=== PATIENT | female | born 1985 | race Caucasian/White ===

== ENCOUNTER → 2016-07-26 | Outpatient (CLI) | payer BC ==
[~2016-07-26] MED LIST: ACET-749 PO; BCPILLS PO; CEPH500C2 PO; CIPR-255 PO; FLM4 PO; HYDR-5688 PO; IBUP-1050 PO; IBUP-1427 PO; OXYC7.5T65 PO; PHEN-775 PO; PRENTAB26 PO
== END | disposition home or self-care (01) ==
LOC: C.LABSPEC 11:44
PROVIDERS: ATTEND Obstetrics & Gynecology
DX: Z34.83 Encounter for supervision of other normal pregnancy, third trimester (principal)

== ENCOUNTER 2016-08-19 21:57 | Outpatient (CLI) | payer BC ==
[~2016-08-19] VITALS: Ht 172.7 cm; Wt 110.0 kg
[~2016-08-19 21:57] MED LIST changes: -ACET-749 PO; -BCPILLS PO; -CEPH500C2 PO; -CIPR-255 PO; -FLM4 PO; -HYDR-5688 PO; -IBUP-1050 PO; -OXYC7.5T65 PO; -PHEN-775 PO
[2016-08-19 22:49] VITALS: Ht 172.7 cm; Wt 110.0 kg
[2016-08-21] MEDS ORDERED: ACET-749 PO (08:06)
--- NOTE | 2016-08-28 12:40 | EDITING REQUIRED CODING QUERY ---
JARA BULB INSERTION Jara bulb insertion is documented by nursing staff for 08-19-16 but a physician note is not documented within EMR. Please clarify below: ( ) Jara bulb was inserted BRIEF DESCRIPTION: ( ) Jara bulb was not inserted. ( ) Other, please clarify: Thank you for your assistance, Magi Javier - Coding [employer]ials[employer]
[2017-01-18] MEDS ORDERED: CIPR-255 PO (10:47)
[2017-01-18] MEDS ORDERED: FLM4 PO (10:47)
[2017-01-18] MEDS ORDERED: HYDR-5688 PO (12:13)
[2017-01-29] MEDS ORDERED: IBUP-1050 PO (14:48)
[2017-02-21] MEDS ORDERED: OXYC7.5T65 PO (08:46)
[2017-02-21] MEDS ORDERED: PHEN-775 PO (08:46)
[2017-02-21] MEDS ORDERED: CEPH500C2 PO (08:46)
== END 2016-08-19 23:50 | disposition home or self-care (01) ==
LOC: C.OPB 21:57 → C.LD 21:57 → C.OPB 23:50
PROVIDERS: ATTEND Obstetrics & Gynecology
DX: O34.43 Maternal care for other abnormalities of cervix, third trimester (principal); Z3A.39 39 weeks gestation of pregnancy

== ENCOUNTER 2016-08-20 07:34 | Inpatient (IN) | payer BC ==
[~2016-08-20] VITALS: Ht 172.7 cm; Wt 117.3 kg
[~2016-08-20 07:34] MED LIST changes: -IBUP-1427 PO
[2016-08-20] MEDS ORDERED: LACTATED RINGER'S 1000ML 1,000 ML IV PRN (09:32)
[2016-08-20] MEDS ORDERED: LACTATED RINGER'S 1000ML 500 ML IV PRN ×2 (10:03→14:15)
[2016-08-20 10:31] LABS: HEMATOCRIT 40.1 % (37-47); MEAN CELL VOLUME 87.6 fL (80-100); MEAN CORPUSCULAR HEMOGLOBIN 30.6 pg (25-34); MEAN CORPUSCULAR HGB CONC 34.9 g/dl (32-36); MEAN PLATELET VOLUME 11.4 fL (7.4-10.4); PLATELET COUNT 184 K/uL (130-400); RED BLOOD COUNT 4.58 M/uL (4.2-5.4); WHITE BLOOD COUNT 11.96 K/uL (4.8-10.8)
[2016-08-20] MEDS: LACTATED RINGER'S 1000ML 1,000 ML IV SCH ×2 (10:49→13:30)
[2016-08-20] MEDS: OXYTOCIN 30 UNITS/500ML NSS IV PRN ×2 (10:50→14:51)
[2016-08-20] MEDS ORDERED: BUPIVACAINE 0.25% 30 ML VIAL ONE (12:21)
[2016-08-20] MEDS ORDERED: FENTANYL CITRATE INJ 50 MCG/1 ML 2 ML VIAL ONE (12:22)
[2016-08-20] MEDS ORDERED: FENTANYL 2MCG/ML ROPIV 1.25MG/ML 100ML BAG EPI ONE (12:22)
[2016-08-20] MEDS ORDERED: EpHEDrine SULFATE INJ 50 MG/ML AMP ONE (12:22)
[2016-08-20] MEDS ORDERED: NALOXONE HCL INJ 0.4 MG/1 ML VIAL/CARP IV PRN (14:15)
[2016-08-20] MEDS ORDERED: NALBUPHINE HCL INJ 10 MG/ML AMP IV PRN (14:15)
[2016-08-20] MEDS ORDERED: EpHEDrine SULFATE INJ 50 MG/ML AMP IV PRN (14:15)
[2016-08-20] MEDS ORDERED: FENTANYL 2MCG/ML ROPIV 1.25MG/ML 100ML BAG EPI PRN (14:15)
[2016-08-20] MEDS ORDERED: DiphenhydrAMINE HCL 50 MG/ML VIAL IV PRN (14:15)
[2016-08-20] MEDS ORDERED: ONDANSETRON INJ 2 MG/ML 2 ML VIAL IV PRN (14:15)
[2016-08-20 15:21] VITALS: Ht 172.7 cm; Wt 117.3 kg
[2016-08-20] MEDS ORDERED: SUPERCREAM 0.870 % 15GM JAR EXT PRN (16:45)
[2016-08-20] MEDS ORDERED: BENZOCAINE 20% AER SPR 82.5 GM CAN EXT PRN (16:45)
[2016-08-20] MEDS ORDERED: LANOLIN OINT EXT PRN ×2 (16:45)
[2016-08-20] MEDS ORDERED: ACETAMINOPHEN 325 MG TAB PO PRN (16:45)
[2016-08-20] MEDS ORDERED: OXYTOCIN 30 UNITS/500ML NSS IV PRN (16:45)
--- NOTE | 2016-08-20 16:52 | Medical Student: [facility] ---
Medical Student Delivery Note PRE-DELIVERY DIAGNOSIS: -30 year old , 39 weeks 4 days GA POST-DELIVERY DIAGNOSIS: same PROCEDURE: Spontaneous vaginal delivery ESTIMATED BLOOD LOSS: 400 mL FINDING: viable female, Apgars 8/9, weight pending DESCRIPTION OF DELIVERY: Patient was administered epidural and progressed to complete labor. She began to push and after two pushes spontaneously vaginally delivered a viable female . The was delivered in the left occiput anterior position. After the head was delivered a tight nuchal cord x2 was noted. The cord was clamped and cut and unwound from the 's neck. Next, the anterior shoulder was delivered followed by the posterior shoulder. Then the body was delivered. The baby was dried and subsequently placed on mother's abdomen. A spontaneous cry was heard. The placenta was then delivered spontaneously with uterine massage and low pressure to prevent inversion. It was intact with a central cord attachment and 2 umbilical arteries and 1 umbilical vein was observed. Uterine massage was continued for several minutes. Upon palpation the uterus was firm. The vagina was inspected for any retained clots or debris. Next, the perineum, vagina and cervix were inspected for any tears. No lacerations were observed. Mother and baby tolerated the procedure well and hemostasis was achieved. Lastly , sponges, instruments and needles were counted and correct at the end of the delivery.
--- NOTE | 2016-08-20 17:01 | DELIVERY SUMMARY ---
DATE OF OPERATION: 08/20/2016 The patient is a 30-year-old 4, para 3-0-0-3 white female EDC of 08/23/2016, who presents at 39 weeks for induction of labor because of higher macrosomic infant. Her last child weighed 10 pounds 3 ounces at 40 and 4/7 weeks. She presented following cervical Mahajan dilation at 4 cm dilated. Cervix was very posterior and Pitocin augmentation was begun. She received epidural analgesia and at 8 cm membranes were ruptured for clear fluid. She went quickly to full dilation and pushed effectively over intact perineum for a viable female infant. There was a double nuchal cord, which was clamped and cut prior to delivery of the rest of the , which delivered easily. The infant was then placed on the mother's abdomen for further attention and stimulation. There was vigorous cry, and the infant was moving all 4 limbs. The placenta was expressed intact with a 3-vessel cord. Estimated blood loss was 400 mL. bleeding was controlled with dilute Pitocin. I attest to the content of the Intraoperative Record and any orders documented therein. Any exceptio ns are noted below.
--- NOTE | 2016-08-20 18:08 | Anesthesia Procedure Note ---
Anesthesia Epidural Removal Nt Date & Time Aug 20, 2016 at 18:07 Vital Signs Pain Intensity: 0.0 Notes Mental Status: alert / awake / arousable, participated in evaluation Nausea / Vomiting: adequately controlled Pain: adequately controlled Airway Patency, RR, SpO2: stable & adequate BP & HR: stable & adequate Hydration State: stable & adequate Neuraxial Anesthesia: was administered, sensory block is resolved Anesthetic Complications: no major complications apparent, pt satisfied with anesthetic care Epidural: removed without complications, with tip intact
[2016-08-20 19:30] VITALS: BP 130/50; PULSE 82; TEMP 36.9; O2SAT 97
[2016-08-20] MEDS: IBUPROFEN 600 MG TAB PO PRN (19:51)
[2016-08-21 00:30] VITALS: BP 151/79; PULSE 75; TEMP 36.7
[2016-08-21] MEDS: IBUPROFEN 600 MG TAB PO PRN ×6 (00:30→23:01)
[2016-08-21 04:40] VITALS: BP 107/63; PULSE 68; TEMP 36.6
[2016-08-21] MEDS: ACETAMINOPHEN/CODEINE 300/30MG TAB PO PRN ×5 (05:31→23:01)
--- NOTE | 2016-08-21 06:19 | Medical Student: [facility] ---
Med Student INSIDE PHONE SALES Progress Nt Date of Service Aug 21, 2016. Subjective conversation w/ patient, physical exam, chart review, lab review Ambulation: limited ambulation (due to back/leg pain) Voiding: no voiding problems Passing Gas: No Diet Tolerance: Regular Diet Lochia: Small Feeding Type: Breast Feeding Pain: mild cramping, no significant vaginal pain. Review of Systems Respiratory: No shortness of breath Cardiac: No chest pain no leg pain/redness, or lightheadedness/dizziness Objective Vital Signs Date Time Temp Pulse Resp B/P Pulse Ox O2 Delivery O2 Flow Rate FiO2 08/21/16 04:40 36.6 68 18 107/63 Room Air 08/21/16 00:30 36.7 75 18 151/79 Room Air 08/20/16 19:30 36.9 82 16 130/50 97 Room Air Physical Exam General Appearance: WELL-APPEARING, NO APPARENT DISTRESS Respiratory/Chest: lungs clear, normal breath sounds Cardiovascular: regular rate, rhythm, no murmur Abdomen: normal bowel sounds, soft Fundus: Firm, Non-Tender, Relation to Umbilicus (1 cm below umbilicus) Extremities: non-tender, no pedal edema Laboratory Results Last 24 Hours Test 08/20/16 10:10 08/21/16 05:40 White Blood Count 11.96 K/uL Red Blood Count 4.58 M/uL Hemoglobin 14.0 g/dL Hematocrit 40.1 % Mean Corpuscular Volume 87.6 fL Mean Corpuscular Hemoglobin 30.6 pg Mean Corpuscular Hemoglobin Concent 34.9 g/dl RDW Standard Deviation 42.5 fL RDW Coefficient of Variation 13.3 % Platelet Count 184 K/uL Mean Platelet Volume 11.4 fL Assessment and Plan Post- Day Number: 1 Continue Routine Care: Doing well clinically. Tolerating PO diet. Pain well controlled w/oral meds. Encourage ambulation as tolerated. Continue routine post care.
[2016-08-21 06:52] LABS: HEMATOCRIT 33.6 % (37-47)
--- NOTE | 2016-08-21 07:15 | Progress Note ---
Subjective Aug 21, 2016. Subjective conversation w/ patient, physical exam Ambulation: limited ambulation (due to back pain) Voiding: no voiding problems Passing Gas: Yes Diet Tolerance: Regular Diet Lochia: Small Feeding Type: Breast Feeding Review of Systems Constitutional: No chills, No fever Respiratory: No cough, No shortness of breath Cardiac: No chest pain, No claudication Objective Vital Signs Date Time Temp Pulse Resp B/P Pulse Ox O2 Delivery O2 Flow Rate FiO2 08/21/16 04:40 36.6 68 18 107/63 Room Air 08/21/16 00:30 36.7 75 18 151/79 Room Air 08/20/16 19:30 36.9 82 16 130/50 97 Room Air Physical Exam General Appearance: WELL-APPEARING, NO APPARENT DISTRESS Respiratory/Chest: lungs clear, no accessory muscle use Cardiovascular: regular rate, rhythm, no murmur Fundus: Firm, Non-Tender, Relation to Umbilicus (1cm below) Extremities: non-tender, no calf tenderness Laboratory Results Last 24 Hours Test 08/20/16 10:10 08/21/16 05:40 White Blood Count 11.96 K/uL Red Blood Count 4.58 M/uL Hemoglobin 14.0 g/dL 11.9 g/dL Hematocrit 40.1 % 33.6 % Mean Corpuscular Volume 87.6 fL Mean Corpuscular Hemoglobin 30.6 pg Mean Corpuscular Hemoglobin Concent 34.9 g/dl RDW Standard Deviation 42.5 fL RDW Coefficient of Variation 13.3 % Platelet Count 184 K/uL Mean Platelet Volume 11.4 fL Assessment and Plan Post- Day#: 1 Continue Routine Care: Resident Physician Supervision Note: I interviewed and examined the patient. Discussed with Dr. Christianson and agree with findings and plan as documented in the note. Any exceptions or clarifications are listed here: [None] Documented By: Astrid Martines s/p Day 1 - vitals reviewed and wnl - Hgb 11.9 this morning - blood: A+, Rubella immune, GBS negative - encourage ambulation, encourage , monitor lochia - patient doing well clinically - CONTINUE ROUTINE POST CARE
[2016-08-21] MEDS: PRENATAL VITAMIN TAB PO SCH (07:51)
[2016-08-21 08:00] VITALS: BP 117/77; PULSE 67; TEMP 36.5
[2016-08-21] MEDS ORDERED: ACET-749 PO (08:06)
--- NOTE | 2016-08-21 08:08 | Discharge Instructions ---
Discharge Instructions Date of Service Aug 21, 2016. Admission Reason for Admission: Induction Discharge Discharge Diagnosis / Problem: recovery from vaginal delivery Discharge Goals Goal(s): Routine recovery after delivery Medications Continue Dispensed Medications: supercream, dermaplast, tucks, lansinoh Activity Recommendations Activity Limitations: per Instructions/Follow-up section . Instructions / Follow-Up Instructions / Follow-Up ACTIVITY RECOMMENDATIONS: * Gradual return to full activity over the next 2-3 weeks. * No lifting - nothing heavier than baby over the next 2-3 weeks. * Do not engage in vigorous exercise, sexual activity or sports until cleared by your physician. * Do not drive or operate any motorized equipment until cleared by your physician. * You may shower/bathe daily. MEDICATIONS: For discomfort or pain, you may use Acetaminophen (Tylenol), Ibuprofen (Advil), or Naproxen (Aleve) following the package directions. For constipation you may use Colace following the package directions. BREAST CARE: If you are not breast feeding: * Wear a supportive bra 24 hours a day for one to two weeks. * Avoid stimulating your breasts and nipples as much as possible during the first few weeks after delivery. * When taking a shower, have the warm water hit your back, not breasts. * When your breasts feel full, apply ice packs. Usually three to four times a day helps ease the discomfort. * Take a mild pain medication (Tylenol / Motrin) when you are uncomfortable. If breast feeding: * Use breast milk to lubricate nipples. Lansinoh cream may be used for sore nipples. You do not need to remove cream prior to breast feeding. If using a different brand of cream, check the label for directions regarding removal of cream prior to nursing. * Wear a supportive bra. * If having problems with breasts or breast feeding, call a health care consultant or your health care provider. EPISIOTOMY CARE: After delivery, if you have an episiotomy (stitches), the following steps will ease discomfort and aid healing. * For the first 24 hours after delivery, place ice packs next to your episiotomy to help reduce swelling. * After the first 24 hour-period, sitz baths, either portable or in the tub, are suggested. A shower with a shower arm sprayed over the episiotomy may be comforting. * Dorcas care should be done after each voiding and bowel movement. Squirt warm water from a plastic bottle over the perineum (region of the body between the anus and urinary opening) and pat dry. * Use Dermoplast to ease discomfort. Shake container. [place] directly over the episiotomy. Place a Tucks on a clean sanitary pad next to your episiotomy. SPECIAL CARE INSTRUCTIONS: When you are discharged from the hospital, it is important for you to follow the instructions listed below: * During the first week at home, you should be able to care for yourself and your baby. In addition, the usual light household activities are encouraged. * Limit your activities to the way you feel. Do not try to clean the house or move furniture. Be sensible. * If you actively engage in sports and have done so up until the time of your delivery, you may resume these activities as soon as you feel able. This may take up to one month or even longer. Use good judgment. * Continue to take your vitamins for at least six weeks after the of your baby. * Your diet need not be limited unless you were on a special diet before your delivery. Breast-feeding mothers need around 2500 calories per day and at least 64-80 ounces of fluid per day (8 to 10 glasses). * You should eat foods from the four major food groups. Crash diets or fad diets are to be avoided. Eating lean meats, fresh fruits and vegetables, low-fat dairy products, high fiber foods and a regular exercise program, will help you get back to your pre- weight without putting your health at risk. * Constipation is sometimes a problem after delivery. Take a mild laxative as needed. If breast feeding, Milk of Magnesia is acceptable to use. You may use a suppository or Fleets enema if no episiotomy. * A daily shower or tub bath is suggested. Be sure to thoroughly and gently dry the perineum. * A bloody vaginal discharge will usually continue until around four weeks post . A small amount of bleeding may continue for as long as six weeks. Vaginal discharge changes from the bright red bleeding after delivery to pink then brownish and finally yellowish-pink before becoming white and disappearing. * Bleeding may increase with activity. Your first period may come in 4-8 weeks. If you are breast feeding, your period may be delayed even longer. * [place] (sex) can begin whenever both you and your partner feel comfortable and do not have any form of genital infection. It is recommended that you wait at least six weeks for internal and external healing to occur. If you have questions, please talk to your health care practitioner. A condom should be used to prevent infection and . * Foreplay, gentle intercourse and lubrication is very important the first several times to prevent pain. A water-based lubricant such as K-Y jelly or Astroglide may be used. * If you have RH negative blood and your baby is RH positive, you will receive RHOGAM by injection prior to discharge. The nurse will give you a card to keep with you that has the date and place that you received RHOGAM after delivery. * During your care, you had a Rubella screen done to check for the presence of rubella antibodies in your blood. If your test was negative, you will receive a Rubella vaccine prior to discharge. This vaccine may cause a fever, soreness at the injection site and flu-like symptoms. If these symptoms persist, notify your health care practitioner. is not advised for one month after a Rubella vaccine. * Verbalizes understanding of car seat law as reviewed with patient nursing. * Car Seat hand-out given and reviewed with patient by nursing. * Shaken baby information reviewed with patient by nursing. Call you doctor if: * Heavy bleeding (saturating several pads an hour) or passing clots the size of your fist. * A fever >101 degrees F (38.3 degrees C) on two occasions four hours apart and /or chills. * Unusual pain in the pelvic or vaginal areas. * "Baby Blues" lasting longer than two weeks. If you have any questions or concerns, call your health care practitioner at . FOLLOW UP VISIT: * Please call the office at to schedule a 6 week examination. It is important you keep this appointment. It is important for you to make arrangements for either yearly or twice yearly check-ups thereafter. Current Hospital Diet Patient's current hospital diet: Regular OB Diet Discharge Diet Recommended Diet: Regular OB Diet Pending Studies Studies pending at discharge: no Medical Emergencies . Who to Call and When: Medical Emergencies: If at any time you feel your situation is an emergency, please call 911 immediately. . Non-Emergent Contact Non-Emergency issues call your: [facility] . . "Provider Documentation" section prepared by Astrid Martines. VTE Core Measure Inpt VTE Proph given/why not?: Treatment not indicated
[2016-08-21 12:40] VITALS: BP 125/81; PULSE 69; TEMP 36.4
[2016-08-21 15:45] VITALS: BP 108/73; PULSE 67; TEMP 36.6; O2SAT 97
[2016-08-21] MEDS ORDERED: BISACODYL 5 MG TABEC PO SCH (20:00)
[2016-08-21] MEDS: DOCUSATE SODIUM 100 MG CAP PO SCH (20:19)
[2016-08-21 23:15] VITALS: BP 110/70; PULSE 71; TEMP 36.5; O2SAT 96
[2016-08-22] MEDS: ACETAMINOPHEN/CODEINE 300/30MG TAB PO PRN ×2 (03:51→08:14)
[2016-08-22] MEDS: IBUPROFEN 600 MG TAB PO PRN (03:51)
--- NOTE | 2016-08-22 06:54 | Medical Student: [facility] ---
Med Student PHYSICIAN CHIEF OF PATHOLOGY Progress Nt Date of Service Aug 22, 2016. Subjective conversation w/ patient, physical exam, chart review, lab review Ambulation: limited ambulation (due to back/leg pain) Voiding: no voiding problems Passing Gas: Yes Diet Tolerance: Regular Diet Lochia: Small Feeding Type: Breast Feeding Pain: mild cramping with breast feeding. moderate-severe back/leg pain Review of Systems Respiratory: No shortness of breath Cardiac: No chest pain Objective Vital Signs Date Time Temp Pulse Resp B/P Pulse Ox O2 Delivery O2 Flow Rate FiO2 08/21/16 23:15 36.5 71 18 110/70 96 Room Air 08/21/16 15:45 36.6 67 16 108/73 97 Room Air 08/21/16 12:40 36.4 69 16 125/81 08/21/16 08:00 36.5 67 20 117/77 Room Air Physical Exam General Appearance: WELL-APPEARING, NO APPARENT DISTRESS, obese Respiratory/Chest: lungs clear, normal breath sounds Cardiovascular: regular rate, rhythm, no murmur Abdomen: non tender, soft Fundus: Firm, Non-Tender (4-5 cm below), Relation to Umbilicus Extremities: non-tender, no pedal edema Assessment and Plan Post- Day Number: 2 Continue Routine Care: Doing well clinically. Difficulty with ambulation related primarily to back pain. Per patient reports this is not out of the ordinary. Can consider discharge home with follow-up for pain with primary care/orthopedic doctor. Otherwise well and without concerns.
[2016-08-22 07:27] VITALS: BP 117/78; PULSE 70; TEMP 36.4; O2SAT 96
--- NOTE | 2016-08-22 08:04 | Progress Note ---
Subjective Aug 22, 2016. Subjective conversation w/ patient, physical exam Ambulation: ambulating normally Voiding: no voiding problems Passing Gas: Yes Diet Tolerance: Regular Diet Lochia: Small Feeding Type: Breast Feeding Pain: back pain Review of Systems Constitutional: No chills, No fever, No sweats Respiratory: No cough, No shortness of breath Cardiac: No chest pain, No claudication Objective Vital Signs Date Time Temp Pulse Resp B/P Pulse Ox O2 Delivery O2 Flow Rate FiO2 08/22/16 07:27 36.4 70 18 117/78 96 Room Air 08/21/16 23:15 36.5 71 18 110/70 96 Room Air 08/21/16 15:45 36.6 67 16 108/73 97 Room Air 08/21/16 12:40 36.4 69 16 125/81 Physical Exam General Appearance: WELL-APPEARING, NO APPARENT DISTRESS Respiratory/Chest: lungs clear, no accessory muscle use Cardiovascular: regular rate, rhythm, no murmur Fundus: Firm, Non-Tender, Relation to Umbilicus (1 cm below) Extremities: non-tender, no calf tenderness Assessment and Plan Post- Day#: 2 Continue Routine Care: s/p Day 2 - vitals reviewed and wnl - Hgb 11.9 yesterday - blood: A+, Rubella immune, GBS negative - encourage ambulation, encourage , monitor lochia - patient doing well clinically - patient counselled on discharge instructions - PATIENT TO BE DISCHARGED TODAY Resident Physician Supervision Note: I was present with Dr. Christianson during the history and exam. I discussed the case with the resident and agree with the findings and plan as documented in the note. Any exceptions or clarifications are listed here: PPD2 doing well, plan discharge home today. Documented By: Samantha Roque
[2016-08-22] MEDS: PRENATAL VITAMIN TAB PO SCH (08:13)
[2016-08-22] MEDS: DOCUSATE SODIUM 100 MG CAP PO SCH (08:14)
[2016-08-22 10:03] VITALS: BP_DIAS 78; PULSE 70; TEMP 36.4
[2017-01-18] MEDS ORDERED: FLM4 PO (10:47)
[2017-01-18] MEDS ORDERED: CIPR-255 PO (10:47)
[2017-01-18] MEDS ORDERED: HYDR-5688 PO (12:13)
[2017-01-29] MEDS ORDERED: IBUP-1050 PO (14:48)
[2017-02-21] MEDS ORDERED: CEPH500C2 PO (08:46)
[2017-02-21] MEDS ORDERED: PHEN-775 PO (08:46)
[2017-02-21] MEDS ORDERED: OXYC7.5T65 PO (08:46)
== END 2016-08-22 10:15 | disposition home or self-care (01) | DRG 775 ==
LOC: C.LD 07:34 → EEVIPCON 07:34 → C.OBG 18:33
PROVIDERS: ADMIT Obstetrics & Gynecology; ATTEND Obstetrics & Gynecology
PROC: 10E0XZZ Delivery of Products of Conception, External Approach (ICD-10-PCS; principal; 2016-08-20)
DX: O69.1XX0 Labor and delivery complicated by cord around neck, with compression, not applicable or unspecified (principal); Z37.0 Single live birth; Z3A.39 39 weeks gestation of pregnancy

== ENCOUNTER → 2016-08-28 | Outpatient (CLI) | payer BC ==
[~2016-08-28] MED LIST changes: +ACET-749 PO; +BCPILLS PO; +CEPH500C2 PO; +CIPR-255 PO; +FLM4 PO; +HYDR-5688 PO; +IBUP-1050 PO; +OXYC7.5T65 PO; +PHEN-775 PO
== END | disposition home or self-care (01) ==
LOC: C.RDSM 08:00
PROVIDERS: ATTEND Family Medicine Sports Medicine
DX: M54.5 Low back pain (principal)

== ENCOUNTER → 2016-09-24 | Outpatient (CLI) | payer BC ==
--- NOTE | 2016-09-24 14:36 | DIAGNOSTIC IMAGING REPORT ---
LUMBAR SPINE MRI HISTORY: MRI lumbar spine LUMBAR DISC DISEASE. STATUS POST DISCECTOMY TECHNIQUE: Multiplanar multisequence MRI of the lumbar spine was performed without the use of contrast. COMPARISON: None. FINDINGS: For the purpose of the report the L5-S1 disc space will be located on axial image 27 of 30. Unremarkable signal characteristics of the vertebral bodies. Moderate disc desiccation L5-S1. Left posterior extradural defect at L5-S1. L1-L2: No significant central canal or neural foraminal narrowing. L2-L3: No significant central canal or neural foraminal narrowing. L3-L4: No significant central canal or neural foraminal narrowing. L4-L5: No significant central canal or neural foraminal narrowing. L5-S1: Left posterior disc herniation L5-S1. Extruded disc fragment extending to the left lateral recess. The extruded fragment measures 9 x 7 mm. Creates focal impact upon the left lateral aspect of thecal sac. IMPRESSION: Left posterior disc herniation L5-S1 with a posterior extruded disc fragment occupying the left lateral recess. 2. Extruded fragment creates focal impact upon the left anterolateral aspect of the thecal sac. 3. Remainder the study is negative. Electronically signed by: Jules Montalvo M.D. 09/24/2016 2:35 PM Dictated Date/Time: 09/24/2016 2:33 PM
== END | disposition home or self-care (01) ==
LOC: C.OPENMRI 13:35
PROVIDERS: ATTEND Family Medicine Sports Medicine
DX: M51.27 Other intervertebral disc displacement, lumbosacral region (principal)

== ENCOUNTER → 2016-10-15 | Outpatient (CLI) | payer BC | END | disposition home or self-care (01) | LOC: C.PAPS 16:48 | PROVIDERS: ATTEND Obstetrics & Gynecology | DX: Z01.419 Encounter for gynecological examination (general) (routine) without abnormal findings (principal) ==

== ENCOUNTER → 2016-12-14 | Outpatient (CLI) | payer BC | END | disposition home or self-care (01) | LOC: C.LABBFT 12:00 | PROVIDERS: ATTEND Nurse Practitioner | DX: Z00.00 Encounter for general adult medical examination without abnormal findings (principal) ==

== ENCOUNTER → 2017-01-08 | Outpatient (CLI) | payer BC ==
[2017-01-08 13:14] LABS: URINE APPEARANCE CLEAR (CLEAR); URINE BILIRUBIN NEG (NEG); URINE COLOR YELLOW; URINE NITRITE NEG (NEG); URINE SPECIFIC GRAVITY 1.013 (1.000-1.030); UROBILINOGEN NEG (NEG)
[2017-01-08 13:20] LABS: MANUAL MICROSCOPIC REQUIRED? NO; REVIEW REQ? NO
== END | disposition home or self-care (01) ==
LOC: C.LABSPEC 12:34
PROVIDERS: ATTEND Internal Medicine
DX: N39.0 Urinary tract infection, site not specified (principal)

== ENCOUNTER → 2017-01-11 | Outpatient (CLI) | payer BC | END | disposition home or self-care (01) | LOC: C.LABBFT 13:20 | PROVIDERS: ATTEND Internal Medicine | DX: N39.0 Urinary tract infection, site not specified (principal) ==

== ENCOUNTER 2017-01-17 18:08 | Inpatient (IN) | payer BC ==
[~2017-01-17] VITALS: Ht 172.7 cm; Wt 109.6 kg
[~2017-01-17 18:08] MED LIST changes: -BCPILLS PO; -CEPH500C2 PO; -CIPR-255 PO; -FLM4 PO; -HYDR-5688 PO; -IBUP-1050 PO; -OXYC7.5T65 PO; -PHEN-775 PO
[2017-01-17] MEDS ORDERED: MoRPHine SULFATE 4 MG/ML 1 ML CARP\\VIAL IV STA (18:25)
[2017-01-17] MEDS ORDERED: ONDANSETRON INJ 2 MG/ML 2 ML VIAL IV STA (18:25)
[2017-01-17] MEDS ORDERED: SODIUM CHLORIDE 0.9% 1000ML 1,000 ML IV STA ×2 (18:25→20:25)
--- NOTE | 2017-01-17 18:29 | EMERGENCY ROOM VISIT NOTE ---
History First contact with patient: 18:13 Chief Complaint: FLANK PAIN Stated Complaint: VOMITTING History of Present Illness The patient is a 31 year old female who presents to the Emergency Room with complaints of left flank pain. The patient states that she was recently treated for urinary tract infection. She had been on Keflex and then Bactrim. She states that she had a clean urinalysis since being treated. She states that today she developed a sudden onset of left flank pain. The pain radiates in the left lower abdomen. It is associated with nausea and vomiting. She rates her discomfort an 8/10. She denies any chest pain or trouble breathing. She denies any dysuria, urgency or frequency. She denies any diarrhea. She denies any history of kidney stone. She denies any falls or injuries. Review of Systems A 10 system review of systems was completed with positives and pertinent negatives listed in the HPI. Past Medical/Surgical History Medical Problems: (1) DELIVER-SINGLE LIVEBORN (2) History of macrosomia in in prior , currently in third trimester (3) Hydronephrosis (4) Left ureteral calculus (5) with 39 completed weeks gestation (6) Unfavorable cervix in term Surgical Problems: (1) [place] Teeth Removal Social History Smoking Status: Never Smoker Marital Status: Current/Historical Medications Scheduled Control Pills ( Control Pills), 1 TAB PO DAILY Physical Exam Vital Signs Date Time Temp Pulse Resp B/P (MAP) Pulse Ox O2 Delivery O2 Flow Rate FiO2 01/17/17 20:46 60 20 106/66 99 Room Air 01/17/17 18:11 36.7 64 16 153/94 95 Room Air Physical Exam VITALS: Vitals are noted on the nurse's note and reviewed by myself. Vital signs stable. The patient is afebrile. GENERAL: This is a 31-year-old female, in no acute distress, nondiaphoretic, well-developed well-nourished. SKIN: The skin was without rashes, erythema, edema, or bruising. There is no tenting of the skin. Capillary reflex less than 2 seconds. HEAD: Normocephalic atraumatic. EARS: The external ears are normal in appearance. EYES: Pupils equal round and reactive to light and accommodation. Conjunctivae without injection, sclerae without icterus. Extraocular movements intact. NOSE: Patent, turbinates without inflammation or discharge. MOUTH: Mucous membranes moist. Tonsils are not enlarged. Pharynx without erythema or exudate. Uvula midline. Airway patent. Tongue does not deviate. NECK: Supple without nuchal rigidity. No lymphadenopathy. No thyromegaly. Cervical spine is nontender. No JVD. HEART: Regular rate and rhythm without murmurs gallops or rubs. LUNGS: Clear to auscultation bilaterally without wheezes, rales or rhonchi. No retractions or accessory muscle use. ABDOMEN: Positive bowel sounds x 4. Soft, mild left lower quadrant tenderness, without masses or organomegaly. MUSCULOSKELETAL: No muscle atrophy, erythema, or edema noted. Full range of motion in all extremities. Normal gait. Strength 5/5 throughout. NEURO: Patient was alert and oriented to person place and time. No focal neurological deficits. Medical Decision & Procedures ER Provider Diagnostic Interpretation: [~ rep ct add3]] ABD/PELVIS WITHOUT FOR STONE CLINICAL HISTORY: 31 years-old Female presenting with left flank pain. TECHNIQUE: Multidetector CT of the abdomen and pelvis was performed without the use of intravenous contrast. IV contrast: None. A dose lowering technique was used consistent with the principles of ALARA (as low as reasonably achievable). COMPARISON: 07/14/2013. CT DOSE (mGy.cm): The estimated cumulative dose is 2107.55 mGy.cm. 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 Lung bases: Pulmonary cyst or bleb/bulla noted posteriorly at the left lower lobe. Lung bases clear. Normal heart size. No pericardial or pleural effusion. The intraventricular blood pool is slightly less dense in the adjacent myocardium which could suggest anemia. Liver: Normal morphology. Normal density. Indeterminate hypodense lesion centrally in the liver (series 2 image 34). This was not apparent on prior contrast enhanced exam from 2013. Biliary: No gross biliary ductal dilatation allowing for noncontrast technique. Normal gallbladder. Pancreas: Normal. Spleen: Subtle region of hypodensity near the splenic hilum at the site of prior suspected infarct. Adrenal glands: Normal. Kidneys and ureters: Nonobstructing 4 mm calculus in the upper pole of the right kidney. Nonobstructing 4 mm calculus also noted in the lower pole of the left kidney as well as a larger 5 mm nonobstructing calculus in the upper pole the left kidney. Mild left hydronephrosis. Perinephric fat stranding near the renal hilum anteriorly. The left ureter is also dilated with mild periureteral fat stranding. An obstructing 6 mm calculus is noted at the left ureterovesical junction. Right ureter normal. Bladder: Incompletely evaluated secondary to underdistention. No evidence of bladder calculus. Pelvic organs: Uterus and ovaries normal. Bowel: Normal. No bowel obstruction. Normal appendix. Peritoneal cavity: No free fluid or intraperitoneal gas. Vasculature: Atherosclerosis of the normal caliber abdominal aorta. Lymph nodes: No enlarged lymph nodes allowing for noncontrast technique. Abdominal wall: Normal. Musculoskeletal: Normal. IMPRESSION: 1. 6 mm obstructing calculus at the left ureterovesical junction with resultant mild left hydroureteronephrosis. Additional bilateral nonobstructing nephrolithiasis. 2. Indeterminate liver lesion not present in 2014. Further evaluation with right upper quadrant ultrasound versus dedicated contrast enhanced CT or MR of the liver is recommended. Laboratory Results 01/17/17 18:50 Red Blood Count 4.77, Mean Corpuscular Volume 85.7, Mean Corpuscular Hemoglobin 29.8, Mean Corpuscular Hemoglobin Concent 34.7, Mean Platelet Volume 9.7, Neutrophils (%) (Auto) 50.7, Lymphocytes (%) (Auto) 39.6, Monocytes (%) (Auto) 4.5, Eosinophils (%) (Auto) 4.7, Basophils (%) (Auto) 0.4, Neutrophils # (Auto) 5.22, Lymphocytes # (Auto) 4.07, Monocytes # (Auto) 0.46, Eosinophils # (Auto) 0.48, Basophils # (Auto) 0.04 01/17/17 18:50 Test 01/17/17 18:50 01/17/17 19:35 White Blood Count 10.28 K/uL (4.8-10.8) Red Blood Count 4.77 M/uL (4.2-5.4) Hemoglobin 14.2 g/dL (12.0-16.0) Hematocrit 40.9 % (37-47) Mean Corpuscular Volume 85.7 fL (80-100) Mean Corpuscular Hemoglobin 29.8 pg (25-34) Mean Corpuscular Hemoglobin Concent 34.7 g/dl (32-36) Platelet Count 244 K/uL (130-400) Mean Platelet Volume 9.7 fL (7.4-10.4) Neutrophils (%) (Auto) 50.7 % Lymphocytes (%) (Auto) 39.6 % Monocytes (%) (Auto) 4.5 % Eosinophils (%) (Auto) 4.7 % Basophils (%) (Auto) 0.4 % Neutrophils # (Auto) 5.22 K/uL (1.4-6.5) Lymphocytes # (Auto) 4.07 K/uL (1.2-3.4) Monocytes # (Auto) 0.46 K/uL (0.11-0.59) Eosinophils # (Auto) 0.48 K/uL (0-0.5) Basophils # (Auto) 0.04 K/uL (0-0.2) RDW Standard Deviation 39.4 fL (36.4-46.3) RDW Coefficient of Variation 12.6 % (11.5-14.5) Immature Granulocyte % (Auto) 0.1 % Immature Granulocyte # (Auto) 0.01 K/uL (0.00-0.02) Anion Gap 8.0 mmol/L (3-11) Est Creatinine Clear Calc Drug Dose 86.5 ml/min Estimated GFR () 68.8 Estimated GFR (Non- 59.3 BUN/Creatinine Ratio 10.6 (10-20) Calcium Level 8.7 mg/dl (8.5-10.1) Total Bilirubin 0.2 mg/dl (0.2-1) Aspartate Amino Transf (AST/SGOT) 21 U/L (15-37) Alanine Aminotransferase (ALT/SGPT) 27 U/L (12-78) Alkaline Phosphatase 84 U/L (45-117) Total Protein 7.4 gm/dl (6.4-8.2) Albumin 3.4 gm/dl (3.4-5.0) Globulin 4.0 gm/dl (2.5-4.0) Albumin/Globulin Ratio 0.9 (0.9-2) Urine Color YELLOW Urine Appearance CLOUDY (CLEAR) Urine pH >= 9.0 (4.5-7.5) Urine Specific [place] 1.027 (1.000-1.030) Urine Protein NEG (NEG) Urine Glucose (UA) NEG (NEG) Urine Ketones NEG (NEG) Urine Occult Blood TRACE (NEG) Urine Nitrite NEG (NEG) Urine Bilirubin NEG (NEG) Urine Urobilinogen NEG (NEG) Urine Leukocyte Esterase SMALL (NEG) Urine WBC (Auto) 10-30 /hpf (0-5) Urine RBC (Auto) 5-10 /hpf (0-4) Urine Hyaline Casts (Auto) 10-30 /lpf (0-5) Urine Epithelial Cells (Auto) >30 /lpf (0-5) Urine Bacteria (Auto) 2+ (NEG) Urine Renal Epithelial Cells /lpf (0-5) Medications Administered Medications (Trade) Dose Ordered Sig/Luisa Route Start Time Stop Time Status Last Admin Dose Admin Sodium Chloride 1,000 ml @ 999 mls/hr Q1H1M STAT IV 01/17/17 18:25 01/17/17 19:25 DC 01/17/17 18:25 999 MLS/HR Morphine Sulfate (MoRPHine SULFATE INJ) 4 mg NOW STAT IV 01/17/17 18:25 01/17/17 18:27 DC 01/17/17 18:25 4 MG Ondansetron HCl (Zofran Inj) 4 mg NOW STAT IV 01/17/17 18:25 01/17/17 18:27 DC 01/17/17 18:25 4 MG Ketorolac Tromethamine (Toradol Inj) 30 mg NOW STAT IV 01/17/17 20:13 01/17/17 20:14 DC 01/17/17 20:13 30 MG Sodium Chloride 1,000 ml @ 999 mls/hr Q1H1M STAT IV 01/17/17 20:25 01/17/17 21:25 DC 01/17/17 21:30 999 MLS/HR Hydromorphone HCl (Dilaudid Inj) 1 mg NOW STAT IV 01/17/17 20:25 01/17/17 20:26 DC 01/17/17 20:25 1 MG Ondansetron HCl (Zofran Inj) 4 mg Q6H PRN IV 01/17/17 20:45 02/16/17 20:44 01/17/17 22:20 4 MG Hydromorphone HCl (Dilaudid Inj) 1 mg Q2H PRN IV 01/17/17 20:45 01/31/17 20:44 01/17/17 22:21 1 MG ED Course The patient was seen and examined. Previous visits were reviewed. The patient does not have fever or leukocytosis. She does not have any significant electrolyte abnormalities. Urinalysis suggests potential contamination from kidney stone versus infection. Urine culture is pending. The patient was hydrated with normal saline solution She was given 4 mg IV morphine and 4 mg IV Zofran with only minimal improvement in her pain She was given 30 mg IV Toradol with moderate improvement in her pain but she still complained of significant discomfort She was then given 1 mg IV Dilaudid. Imaging was obtained as above. The patient has a 6 mm obstructing stone at the left UVJ with hydronephrosis Incidentally, the patient has a lesion that was not present on a 2014 examination. She was advised of this and advised she will need further evaluation and management for it. The patient did not have significant relief with the above treatment. She will require further evaluation and management in the hospital. The case was discussed with the [facility] hospitalist group and they will evaluate the patient. The case was discussed with Dr. Mi who agrees with the assessment and treatment plan. Medical Decision DIFFERENTIAL DIAGNOSIS: Hepatitis, cholecystitis, cholangitis, biliary colic, pancreatitis, pneumonia, subdiaphragmatic abscess, appendicitis, inguinal hernia , nephrolithiasis, inflammatory bowel disease, mesenteric adenitis, peptic ulcer disease, GERD, gastritis, pancreatitis, myocardial infarction, pericarditis, ruptured aortic aneurysm, appendicitis, gastroenteritis, bowel obstruction, splenic infarct, diverticulitis, mesenteric ischemia, metabolic, peritonitis, among others. Medication Reconcilliation Current Medication List: was personally reviewed by sd Blood Pressure Screening Patient's blood pressure: Normal blood pressure Blood pressure disposition: Did not require urgent referral Impression Primary Impression: Kidney stone Additional Impression: Hydronephrosis Departure Information Dispostion Admitted as an inpatient Referrals Gretel Garcia, C.R.N.P. (PCP) Patient Instructions My [facility] Problem Qualifiers
[2017-01-17 18:59] LABS: BASO % 0.4 %; BASO ABS # 0.04 K/uL (0-0.2); COMPLETE YES; EOS % 4.7 %; HEMATOCRIT 40.9 % (37-47); IG% 0.1 %; LYMPH % 39.6 %; LYMPH ABS # 4.07 K/uL (1.2-3.4); MEAN CELL VOLUME 85.7 fL (80-100); MEAN CORPUSCULAR HEMOGLOBIN 29.8 pg (25-34); MEAN CORPUSCULAR HGB CONC 34.7 g/dl (32-36); MEAN PLATELET VOLUME 9.7 fL (7.4-10.4); MONO % 4.5 %; NEUT % 50.7 %; PLATELET COUNT 244 K/uL (130-400); RED BLOOD COUNT 4.77 M/uL (4.2-5.4); WHITE BLOOD COUNT 10.28 K/uL (4.8-10.8)
[2017-01-17 19:27] LABS: BUN/CREATININE RATIO 10.6 (10-20); CALCIUM 8.7 mg/dl (8.5-10.1); CREATININE 1.2 mg/dl (0.60-1.20); POTASSIUM 3.6 mmol/L (3.5-5.1)
[2017-01-17 19:30] LABS: ALB/GLOB RATIO 0.9 (0.9-2)
--- NOTE | 2017-01-17 20:06 | DIAGNOSTIC IMAGING REPORT ---
ABD/PELVIS WITHOUT FOR STONE CLINICAL HISTORY: 31 years-old Female presenting with left flank pain. TECHNIQUE: Multidetector CT of the abdomen and pelvis was performed without the use of intravenous contrast. IV contrast: None. A dose lowering technique was used consistent with the principles of ALARA (as low as reasonably achievable). COMPARISON: 07/14/2013. CT DOSE (mGy.cm): The estimated cumulative dose is 2107.55 mGy.cm. 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 Lung bases: Pulmonary cyst or bleb/bulla noted posteriorly at the left lower lobe. Lung bases clear. Normal heart size. No pericardial or pleural effusion. The intraventricular blood pool is slightly less dense in the adjacent myocardium which could suggest anemia. Liver: Normal morphology. Normal density. Indeterminate hypodense lesion centrally in the liver (series 2 image 34). This was not apparent on prior contrast enhanced exam from 2013. Biliary: No gross biliary ductal dilatation allowing for noncontrast technique. Normal gallbladder. Pancreas: Normal. Spleen: Subtle region of hypodensity near the splenic hilum at the site of prior suspected infarct. Adrenal glands: Normal. Kidneys and ureters: Nonobstructing 4 mm calculus in the upper pole of the right kidney. Nonobstructing 4 mm calculus also noted in the lower pole of the left kidney as well as a larger 5 mm nonobstructing calculus in the upper pole the left kidney. Mild left hydronephrosis. Perinephric fat stranding near the renal hilum anteriorly. The left ureter is also dilated with mild periureteral fat stranding. An obstructing 6 mm calculus is noted at the left ureterovesical junction. Right ureter normal. Bladder: Incompletely evaluated secondary to underdistention. No evidence of bladder calculus. Pelvic organs: Uterus and ovaries normal. Bowel: Normal. No bowel obstruction. Normal appendix. Peritoneal cavity: No free fluid or intraperitoneal gas. Vasculature: Atherosclerosis of the normal caliber abdominal aorta. Lymph nodes: No enlarged lymph nodes allowing for noncontrast technique. Abdominal wall: Normal. Musculoskeletal: Normal. IMPRESSION: 1. 6 mm obstructing calculus at the left ureterovesical junction with resultant mild left hydroureteronephrosis. Additional bilateral nonobstructing nephrolithiasis. 2. Indeterminate liver lesion not present in 2014. Further evaluation with right upper quadrant ultrasound versus dedicated contrast enhanced CT or MR of the liver is recommended. Electronically signed by: Monico Rivas M.D. 01/17/2017 8:05 PM Dictated Date/Time: 01/17/2017 7:55 PM
[2017-01-17] MEDS ORDERED: KETOROLAC TROMETHAMINE 30 MG/ML VIAL IV STA (20:13)
[2017-01-17] MEDS ORDERED: BCPILLS PO (20:15)
[2017-01-17] MEDS ORDERED: HYDROmorphone INJ 1 MG/ML SYR IV STA (20:25)
[2017-01-17] MEDS ORDERED: HYDROmorphone INJ 0.5 MG/0.5 ML SYR IV PRN (20:45)
[2017-01-17] MEDS ORDERED: HYDROmorphone INJ 1 MG/ML SYR IV PRN (20:45)
[2017-01-17] MEDS ORDERED: ACETAMINOPHEN 325 MG TAB PO PRN (20:45)
[2017-01-17] MEDS ORDERED: NALOXONE HCL 0.4 MG/1 ML VIAL/CARP IV PRN (20:45)
[2017-01-17] MEDS ORDERED: ZOLPIDEM TARTRATE 5 MG TAB PO PRN (20:45)
--- NOTE | 2017-01-17 20:52 | History and Physical ---
History & Physical Date & Time of Service: Jan 17, 2017 at 20:51 Chief Complaint: Vomitting Primary Care Physician: Gretel Garcia C.R.NKushalPKushal History of Present Illness Source: patient The patient is a 31-year-old female who presents to the emergency department, recently treated for UTI with Keflex and then Bactrim, complaining of the sudden onset of left flank pain today with radiation to her left lower abdomen. She reports having a normal urinalysis posttreatment. She has had some associated nausea and vomiting, but denies any dysuria, urgency or frequency. She has no personal or family history of kidney stones. Past Medical/Surgical History Medical Problems: (1) DELIVER-SINGLE LIVEBORN Status: Resolved Surgical Problems: (1) [place]eth Removal Status: Resolved Family History Noncontributory Social History Smoking Status: Never Smoker Smokeless Tobacco Use: No Alcohol Use: none Drug Use: none Marital Status: Housing status: lives with family Occupational Status: employed Immunizations History of Influenza Vaccine: Unknown History of Tetanus Vaccine?: UTD History of Pneumococcal: No History of Hepatitis B Vaccine: No Multi-Drug Resistant Organisms History of MDRO: No Allergies Coded Allergies: No Known Allergies (Unverified , 08/20/16) Home Medications Scheduled Control Pills ( Control Pills), 1 TAB PO DAILY Review of Systems The patient denies chest pain, palpitations, shortness of breath, cough, lower extremity swelling, sore throat, fevers, chills, sweats, weight change, fatigue , diarrhea or constipation, blood in urine or stool, dysuria, urinary frequency or urgency, lightheadedness, dizziness, headache, memory loss, rash, abnormal bruising or bleeding, imbalance, focal or generalized weakness, numbness or tingling in arms or legs, generalized arthralgias or myalgias, back or neck pain , night sweats, or allergy symptoms. The review of systems is otherwise negative other than for that already noted above, and at least 10 systems have been reviewed. Physical Exam Vital Signs Date Time Temp Pulse Resp B/P (MAP) Pulse Ox O2 Delivery O2 Flow Rate FiO2 01/17/17 20:46 60 20 106/66 99 Room Air 01/17/17 18:11 36.7 64 16 153/94 95 Room Air The patient is awake, well-developed and adequately nourished, alert and oriented 3, normocephalic and atraumatic, lying in bed and in mild distress secondary to flank pain. HEENT--PERRL, EOMI, mucous membranes and oropharynx dry. Neck--supple, no JVD or bruits, thyroid normal, trachea midline, no adenopathy. Heart--normal S1 and S2, no extra beats, no murmurs, rubs or gallops. Lungs--clear bilaterally with good air movement, no respiratory distress, no accessory muscle use. Abdomen--normal bowel sounds and soft. Left flank tenderness . Nondistended. No hernias, masses, or organomegaly. Obese Extremities--no cyanosis, clubbing or edema. There are good distal pulses b/l. Dermatologic--normal skin turgor, normal color, warm and dry, no abnormal lymph nodes, no rash. Neurologic--cranial nerves II through XII grossly intact. Rheumatologic--normal range of motion, nontender, muscles and joints. Psychiatric--normal affect. Diagnostics Laboratory Results Results Past 24 Hours Test 01/17/17 18:50 Range/Units White Blood Count 10.28 4.8-10.8 K/uL Red Blood Count 4.77 4.2-5.4 M/uL Hemoglobin 14.2 12.0-16.0 g/dL Hematocrit 40.9 37-47 % Mean Corpuscular Volume 85.7 80-100 fL Mean Corpuscular Hemoglobin 29.8 25-34 pg Mean Corpuscular Hemoglobin Concent 34.7 32-36 g/dl Platelet Count 244 130-400 K/uL Mean Platelet Volume 9.7 7.4-10.4 fL Neutrophils (%) (Auto) 50.7 % Lymphocytes (%) (Auto) 39.6 % Monocytes (%) (Auto) 4.5 % Eosinophils (%) (Auto) 4.7 % Basophils (%) (Auto) 0.4 % Neutrophils # (Auto) 5.22 1.4-6.5 K/uL Lymphocytes # (Auto) 4.07 1.2-3.4 K/uL Monocytes # (Auto) 0.46 0.11-0.59 K/uL Eosinophils # (Auto) 0.48 0-0.5 K/uL Basophils # (Auto) 0.04 0-0.2 K/uL RDW Standard Deviation 39.4 36.4-46.3 fL RDW Coefficient of Variation 12.6 11.5-14.5 % Immature Granulocyte % (Auto) 0.1 % Immature Granulocyte # (Auto) 0.01 0.00-0.02 K/uL Sodium Level 142 136-145 mmol/L Potassium Level 3.6 3.5-5.1 mmol/L Chloride Level 107 98-107 mmol/L Carbon Dioxide Level 27 21-32 mmol/L Anion Gap 8.0 3-11 mmol/L Blood Urea Nitrogen 13 7-18 mg/dl Creatinine 1.20 0.60-1.20 mg/dl Est Creatinine Clear Calc Drug Dose 86.5 ml/min Estimated GFR () 68.8 Estimated GFR (Non- 59.3 BUN/Creatinine Ratio 10.6 10-20 Random Glucose 103 70-99 mg/dl Calcium Level 8.7 8.5-10.1 mg/dl Total Bilirubin 0.2 0.2-1 mg/dl Aspartate Amino Transf (AST/SGOT) 21 15-37 U/L Alanine Aminotransferase (ALT/SGPT) 27 12-78 U/L Alkaline Phosphatase 84 45-117 U/L Total Protein 7.4 6.4-8.2 gm/dl Albumin 3.4 3.4-5.0 gm/dl Globulin 4.0 2.5-4.0 gm/dl Albumin/Globulin Ratio 0.9 0.9-2 Diagnostic Radiology Patient Name: CLEMENTINA PARRA Unit Number: [id number] Dictated: 01/17/171954 Transcribed: 01/17/171954 PBS Printed Date/Time: [~ rep prt dt]/[~ rep prt tm] [~ rep ct labl] - [~ rep ct ivnm] [facility] [address] Dictated: 01/17/171954 Transcribed: 01/17/171954 PBS Printed Date/Time: [~ rep prt dt]/[~ rep prt tm] [~ rep ct labl] - [~ rep ct ivnm] [~ rep ct add3]] ABD/PELVIS WITHOUT FOR STONE CLINICAL HISTORY: 31 years-old Female presenting with left flank pain. TECHNIQUE: Multidetector CT of the abdomen and pelvis was performed without the use of intravenous contrast. IV contrast: None. A dose lowering technique was used consistent with the principles of ALARA (as low as reasonably achievable). COMPARISON: 07/14/2013. CT DOSE (mGy.cm): The estimated cumulative dose is 2107.55 mGy.cm. 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 Lung bases: Pulmonary cyst or bleb/bulla noted posteriorly at the left lower lobe. Lung bases clear. Normal heart size. No pericardial or pleural effusion. The intraventricular blood pool is slightly less dense in the adjacent myocardium which could suggest anemia. Liver: Normal morphology. Normal density. Indeterminate hypodense lesion centrally in the liver (series 2 image 34). This was not apparent on prior contrast enhanced exam from 2013. Biliary: No gross biliary ductal dilatation allowing for noncontrast technique. Normal gallbladder. Pancreas: Normal. Spleen: Subtle region of hypodensity near the splenic hilum at the site of prior suspected infarct. Adrenal glands: Normal. Kidneys and ureters: Nonobstructing 4 mm calculus in the upper pole of the right kidney. Nonobstructing 4 mm calculus also noted in the lower pole of the left kidney as well as a larger 5 mm nonobstructing calculus in the upper pole the left kidney. Mild left hydronephrosis. Perinephric fat stranding near the renal hilum anteriorly. The left ureter is also dilated with mild periureteral fat stranding. An obstructing 6 mm calculus is noted at the left ureterovesical junction. Right ureter normal. Bladder: Incompletely evaluated secondary to underdistention. No evidence of bladder calculus. Pelvic organs: Uterus and ovaries normal. Bowel: Normal. No bowel obstruction. Normal appendix. Peritoneal cavity: No free fluid or intraperitoneal gas. Vasculature: Atherosclerosis of the normal caliber abdominal aorta. Lymph nodes: No enlarged lymph nodes allowing for noncontrast technique. Abdominal wall: Normal. Musculoskeletal: Normal. IMPRESSION: 1. 6 mm obstructing calculus at the left ureterovesical junction with resultant mild left hydroureteronephrosis. Additional bilateral nonobstructing nephrolithiasis. 2. Indeterminate liver lesion not present in 2014. Further evaluation with right upper quadrant ultrasound versus dedicated contrast enhanced CT or MR of the liver is recommended. Electronically signed by: Monico Rivas M.D. 01/17/2017 8:05 PM Dictated Date/Time: 01/17/2017 7:55 PM The status of this report is Signed. Draft = Not yet reviewed or approved by Radiologist. Signed = Reviewed and approved by Radiologist. <AttendingPhy></AttendingPhy> <FamilyPhy>Gretel Garcia C.R.N.P.</FamilyPhy> <PrimaryPhy>Gretel Garcia C.R.N.P.</PrimaryPhy> <UnitNumber>[id number]</ UnitNumber> <VisitNumber>[id number]</VisitNumber> <PatientName>CLEMENTINA PARRA </PatientName> <DateOfBirth>1985</DateOfBirth> <Location>C.[facility]</Location> <ServiceDate>01/17/17</ServiceDate> <MNE>ESINDI</MNE> <OrderingPhy>Kika Abrams PA-C</OrderingPhy> <OrderingPhyMNE>f rep ord dr holloway</OrderingPhyMNE > <DictatingPhyMNE>f rep dict dr holloway</DictatingPhyMNE> <CCListMNE>f rep ct amie</ CCListMNE> <AdmittingPhyMNE>f pt admit dr holloway</AdmittingPhyMNE> <AttendingPhyMNE >f pt attend dr holloway</AttendingPhyMNE> <ConsultingPhyMNE>f pt consult dr holloway</ConsultingPhyMNE> <FamilyPhyMNE>f pt fam dr holloway</FamilyPhyMNE> <OtherPhyMNE>f pt other dr holloway</OtherPhyMNE> < PrimaryPhyMNE>f pt prim care dr holloway</PrimaryPhyMNE> <ReferringPhyMNE>f pt referring dr holloway</ReferringPhyMNE> Impression Assessment and Plan Left 6 mm ureterovesical junction calculus with mild left hydronephrosis-- patient admitted to medical surgical floor. Nothing by mouth after been night except medications. Place on ceftriaxone 1 g IV daily. Follow urine culture and sensitivity reports. Normal saline with KCl 20 mEq at 100 ML's per hour. Dilaudid 0.5 to 1 mg IV every 2 hours when necessary. Zofran 4 mg IV every 6 hours when necessary. Famotidine 20 mg IV every 12 hours. Consult urology. Indeterminate Liver lesion--order an ultrasound for follow-up tonight. Level of Care Med/Surg Advanced Directives Existing Advance Directive: No Existing Living Will: No Existing Power of Glycerin Supervisor: No Resuscitation Status FULL RESUSCITATION VTE Prophylaxis VTE Risk Assessment Done? Y/N: Yes Risk Level: Low Given or contraindicated: SCD's Social Service Consult None Apply
[2017-01-17 21:20] LABS: URINE APPEARANCE CLOUDY (CLEAR); URINE BILIRUBIN NEG (NEG); URINE COLOR YELLOW; URINE EPITHELIAL CELL AUTO >30 /lpf (0-5); URINE NITRITE NEG (NEG); URINE PH >= 9.0 (4.5-7.5); URINE SPECIFIC GRAVITY 1.027 (1.000-1.030); UROBILINOGEN NEG (NEG); ZZUR CULT IF INDIC CLEAN CATCH YES
[2017-01-17 21:30] VITALS: BP 126/88; PULSE 66; TEMP 36.7; O2SAT 97; Ht 172.7 cm; Wt 109.6 kg
[2017-01-17 21:40] LABS: MANUAL MICROSCOPIC REQUIRED? NO; REVIEW REQ? YES; SULFASALICYLIC ACID NEG (NEG)
[2017-01-17] MEDS: ONDANSETRON INJ 2 MG/ML 2 ML VIAL IV PRN (22:20)
[2017-01-17] MEDS ORDERED: CEFTRIAXONE SOD INJ 1 GM in DEXTROSE 5% ADD-VANTAGE 50ML 50 ML IV SCH (23:00)
[2017-01-17] MEDS: FAMOTIDINE IV INJ 20 MG in DEXTROSE 5% 100ML 100 ML IV SCH (23:23)
[2017-01-17] MEDS ORDERED: NURSING VERBAL MED ORDER ONE (23:30)
[2017-01-17 23:35] VITALS: BP 103/68; PULSE 70; TEMP 36.9; O2SAT 96
[2017-01-17] MEDS: NSS + 20MEQ KCL 1000ML 1,000 ML IV SCH (23:58)
[2017-01-18] MEDS: ONDANSETRON INJ 2 MG/ML 2 ML VIAL IV PRN ×2 (00:43→10:09)
[2017-01-18 07:08] LABS: BASO % 0.4 %; BASO ABS # 0.03 K/uL (0-0.2); COMPLETE YES; EOS % 1.5 %; HEMATOCRIT 36.8 % (37-47); IG% 0.1 %; LYMPH % 31.1 %; LYMPH ABS # 2.57 K/uL (1.2-3.4); MEAN CELL VOLUME 87.6 fL (80-100); MEAN CORPUSCULAR HEMOGLOBIN 29.5 pg (25-34); MEAN CORPUSCULAR HGB CONC 33.7 g/dl (32-36); MEAN PLATELET VOLUME 8.9 fL (7.4-10.4); MONO % 6.2 %; NEUT % 60.7 %; PLATELET COUNT 194 K/uL (130-400); WHITE BLOOD COUNT 8.26 K/uL (4.8-10.8)
--- NOTE | 2017-01-18 07:24 | DIAGNOSTIC IMAGING REPORT ---
ABDOMINAL ULTRASOUND, RIGHT UPPER QUADRANT HISTORY: Follow-up liver lesion on CT. COMPARISON: Abdomen and pelvis CT 01/17/2017. FINDINGS: Pancreas: The pancreas demonstrates a normal echotexture. Liver: Within the liver adjacent to the main portal vein there is a 2.2 x 1.9 x 1.2 cm hyperechoic area. This has the typical appearance and location for focal fat. A hemangioma could also have a similar appearance. This corresponds to the CT abnormality. Gallbladder: No gallbladder wall thickening. No gallstones. Punctate echogenic focus with ringdown artifact within the gallbladder fundus consistent with adenomyomatosis. CBD: 3 mm. Right kidney: No hydronephrosis. IMPRESSION: 1. A 2.2 x 1.9 x 1.2 cm hyperechoic area within the liver adjacent to the main portal vein. Since the typical appearance and location for focal fat. A hemangioma could also have a similar appearance. Six-month to one-year follow-up can be performed to ensure stability. 2. No gallstones. No gallbladder wall thickening. Electronically signed by: Quan Ernst M.D. 01/18/2017 7:23 AM Dictated Date/Time: 01/18/2017 7:19 AM
[2017-01-18 07:38] VITALS: BP 116/70; PULSE 62; TEMP 36.7; O2SAT 98
[2017-01-18 07:46] LABS: BUN/CREATININE RATIO 12.2 (10-20); CALCIUM 7.9 mg/dl (8.5-10.1); CREATININE 0.88 mg/dl (0.60-1.20); MAGNESIUM 1.8 mg/dl (1.8-2.4); POTASSIUM 4.1 mmol/L (3.5-5.1)
--- NOTE | 2017-01-18 07:48 | History & Physical Bridge - SC ---
H&P Re-Evaluation Bridge Note: I have examined the patient, reviewed the History & Physical and in the interval since the performance of the History & Physical I have noted the following changes of clinical significance: No changes noted
--- NOTE | 2017-01-18 09:56 | Urology Consultation ---
History General Date of Service: Jan 18, 2017. Primary Care Physician: Gretel Garcia C.R.N.P. Pt seen a urologist before?: No History of Present Illness 31 year old female admitted for left ureteral stone. Significant pain along with nausea/ vomiting developed yesterday bringing her to the ER. Reports no personal or family hx of stones. CT scan showed an obstructing 6 mm left ureterovesical junction stone with left hydronephrosis. Also note bilateral nonobstructing stones. She currently has IVF infusing and is NPO except meds. No current pain. Last pain med was administered around midnight - IV dilaudid. Denies nausea at this time. She does not burning in her urethra and urinary frequency. Reports she has a recent history of UTI. Treated with keflex and Bactrim. Urine culture is currently pending. She is on IV ceftriaxone. AFVSS. White count and creatinine are normal. Imaging Imaging: CT Laboratory Last 24 Hours Test 01/17/17 18:50 01/17/17 19:35 01/18/17 06:57 White Blood Count 10.28 K/uL 8.26 K/uL Red Blood Count 4.77 M/uL 4.20 M/uL Hemoglobin 14.2 g/dL 12.4 g/dL Hematocrit 40.9 % 36.8 % Mean Corpuscular Volume 85.7 fL 87.6 fL Mean Corpuscular Hemoglobin 29.8 pg 29.5 pg Mean Corpuscular Hemoglobin Concent 34.7 g/dl 33.7 g/dl Platelet Count 244 K/uL 194 K/uL Mean Platelet Volume 9.7 fL 8.9 fL Neutrophils (%) (Auto) 50.7 % 60.7 % Lymphocytes (%) (Auto) 39.6 % 31.1 % Monocytes (%) (Auto) 4.5 % 6.2 % Eosinophils (%) (Auto) 4.7 % 1.5 % Basophils (%) (Auto) 0.4 % 0.4 % Neutrophils # (Auto) 5.22 K/uL 5.02 K/uL Lymphocytes # (Auto) 4.07 K/uL 2.57 K/uL Monocytes # (Auto) 0.46 K/uL 0.51 K/uL Eosinophils # (Auto) 0.48 K/uL 0.12 K/uL Basophils # (Auto) 0.04 K/uL 0.03 K/uL RDW Standard Deviation 39.4 fL 41.1 fL RDW Coefficient of Variation 12.6 % 12.8 % Immature Granulocyte % (Auto) 0.1 % 0.1 % Immature Granulocyte # (Auto) 0.01 K/uL 0.01 K/uL Sodium Level 142 mmol/L 142 mmol/L Potassium Level 3.6 mmol/L 4.1 mmol/L Chloride Level 107 mmol/L 111 mmol/L Carbon Dioxide Level 27 mmol/L 29 mmol/L Anion Gap 8.0 mmol/L 2.0 mmol/L Blood Urea Nitrogen 13 mg/dl 11 mg/dl Creatinine 1.20 mg/dl 0.88 mg/dl Est Creatinine Clear Calc Drug Dose 86.5 ml/min 117.9 ml/min Estimated GFR () 68.8 100.1 Estimated GFR (Non- 59.3 86.3 BUN/Creatinine Ratio 10.6 12.2 Random Glucose 103 mg/dl 89 mg/dl Calcium Level 8.7 mg/dl 7.9 mg/dl Total Bilirubin 0.2 mg/dl Aspartate Amino Transf (AST/SGOT) 21 U/L Alanine Aminotransferase (ALT/SGPT) 27 U/L Alkaline Phosphatase 84 U/L Total Protein 7.4 gm/dl Albumin 3.4 gm/dl Globulin 4.0 gm/dl Albumin/Globulin Ratio 0.9 Urine Color YELLOW Urine Appearance CLOUDY Urine pH >= 9.0 Urine Specific [place] 1.027 Urine Protein NEG Urine Glucose (UA) NEG Urine Ketones NEG Urine Occult Blood TRACE Urine Nitrite NEG Urine Bilirubin NEG Urine Urobilinogen NEG Urine Leukocyte Esterase SMALL Urine WBC (Auto) 10-30 /hpf Urine RBC (Auto) 5-10 /hpf Urine Hyaline Casts (Auto) 10-30 /lpf Urine Epithelial Cells (Auto) >30 /lpf Urine Bacteria (Auto) 2+ Urine Renal Epithelial Cells /lpf Magnesium Level 1.8 mg/dl Current Inpatient Medications Medications (Trade) Dose Ordered Sig/Luisa Route Start Time Stop Time Status Last Admin Dose Admin Acetaminophen (Tylenol Tab) 650 mg Q4H PRN PO 01/17/17 20:45 02/16/17 20:44 Zolpidem Tartrate (Ambien Tab) 5 mg HSZ PRN PO 01/17/17 20:45 02/16/17 20:44 Ondansetron HCl (Zofran Inj) 4 mg Q6H PRN IV 01/17/17 20:45 02/16/17 20:44 01/18/17 00:43 4 MG Hydromorphone HCl (Dilaudid Inj) 1 mg Q2H PRN IV 01/17/17 20:45 01/31/17 20:44 01/17/17 22:21 1 MG Hydromorphone HCl (Dilaudid Inj) 0.5 mg Q2H PRN IV 01/17/17 20:45 01/31/17 20:44 Naloxone HCl (Narcan Inj) 0.4 mg Q1H PRN IV 01/17/17 20:45 02/16/17 20:44 Famotidine 20 mg/ Dextrose 102 ml @ 200 mls/hr Q12H IV 01/17/17 23:00 02/16/17 22:59 01/17/17 23:23 200 MLS/HR Ceftriaxone Sodium 1 gm/ Dextrose 50 ml @ 100 mls/hr Q24H IV 01/17/17 23:00 01/27/17 22:59 01/17/17 23:57 100 MLS/HR Potassium Chloride/Sodium Chloride 1,000 ml @ 125 mls/hr Q8H IV 01/17/17 23:45 02/16/17 23:44 01/17/17 23:58 125 MLS/HR Labs were reviewed and are within normal limits unless listed below. Labs are available in the chart and at [facility] Problem List Medical Problems: (1) Kidney stone Status: Acute Past History no pertinent history Past Surgical History: other (wisdom teeth removal and childbirth) Family History Noncontributory No family hx of stones. Social History Hx Tobacco Use In Past Year?: No Marital status: Housing status: lives with family Occupation status: employed Immunizations History of Influenza Vaccine: Unknown History of Tetanus Vaccine?: UTD History of Pneumococcal: No History of Hepatitis B Vaccine: No History of MDRO No Allergies Coded Allergies: No Known Allergies (Unverified , 08/20/16) Medications Home Medications: Home Meds and Scripts Medications Dose Route/Sig Max Daily Dose Days Date Category Control Pills (Miscellaneous) Tab 1 Tab PO DAILY 01/17/17 Reported Inpatient Medications: Current Inpatient Medications Medications (Trade) Dose Ordered Sig/Luisa Route Start Time Stop Time Status Last Admin Dose Admin Acetaminophen (Tylenol Tab) 650 mg Q4H PRN PO 01/17/17 20:45 02/16/17 20:44 Zolpidem Tartrate (Ambien Tab) 5 mg HSZ PRN PO 01/17/17 20:45 02/16/17 20:44 Ondansetron HCl (Zofran Inj) 4 mg Q6H PRN IV 01/17/17 20:45 02/16/17 20:44 01/18/17 00:43 4 MG Hydromorphone HCl (Dilaudid Inj) 1 mg Q2H PRN IV 01/17/17 20:45 01/31/17 20:44 01/17/17 22:21 1 MG Hydromorphone HCl (Dilaudid Inj) 0.5 mg Q2H PRN IV 01/17/17 20:45 01/31/17 20:44 Naloxone HCl (Narcan Inj) 0.4 mg Q1H PRN IV 01/17/17 20:45 02/16/17 20:44 Famotidine 20 mg/ Dextrose 102 ml @ 200 mls/hr Q12H IV 01/17/17 23:00 02/16/17 22:59 01/17/17 23:23 200 MLS/HR Ceftriaxone Sodium 1 gm/ Dextrose 50 ml @ 100 mls/hr Q24H IV 01/17/17 23:00 01/27/17 22:59 01/17/17 23:57 100 MLS/HR Potassium Chloride/Sodium Chloride 1,000 ml @ 125 mls/hr Q8H IV 01/17/17 23:45 02/16/17 23:44 01/17/17 23:58 125 MLS/HR Review of Systems Review of Systems Constitutional: No fever, No chills Eyes: No blurred vision Neurological: No dizzy Endocrine: No excessive thirst Gastrointestinal: + see HPI Cardiovascular: No chest pain Respiratory: No shortness of breath Skin: No rash Musculoskeletal: No joint pain Blood / Lymphatic: No bleed easily Ears / Nose / Throat: No hearing loss Psychologic / Mental: No nervous Female : + see HPI, + frequent urination, + painful urination, + kidney stones, No blood in urine Physical Exam Vital Signs: Vital Signs Past 12 Hours Date Time Temp Pulse Resp B/P (MAP) Pulse Ox O2 Delivery O2 Flow Rate FiO2 01/18/17 07:50 Room Air 01/18/17 07:38 36.7 62 16 116/70 (85) 98 Room Air 01/17/17 23:35 36.9 70 16 103/68 (80) 96 Room Air Physical Exam: General Appearance: WD/WN, no apparent distress ENT: hearing grossly normal Neck: no JVD Respiratory/Chest: chest non-tender, lungs clear, normal breath sounds, no respiratory distress, no accessory muscle use Cardiovascular: regular rate, rhythm, no edema, no gallop, no JVD, no murmur Extremities: normal range of motion, non-tender, normal inspection, no pedal edema, no calf tenderness, normal capillary refill Neurologic/Psychiatric: alert, normal mood/affect, oriented x 3 Skin: normal color, warm/dry Assessment & Plan Assessment & Plan Imaging: CT Agree wih plan cLeft ureteral stone CT shows obstructing left ureteral stone. Currently she is pain free. Using minimal pain meds. Afebrile. VSS. Labs unremarkable. Discussed options of MET vs stent placement. She would like to try and pass the stone on her own. Will start her on tamsulosin to help facilitate stone passage. Encouraged increased fluid intake for now. Ok to feed. Will make her NPO after MN in case she should need surgical intervention. She is tentatively added for possible cystoscopy with left stent placement possible laser litho,stone extraction with Dr. Rodriguez.- OR was called. Will need EKG, chest xray and consents if proceeds. Strain all urine. Continue IV antibx. Will watch for urine culture results. Will get KUB in the am. If her pain is under control and VSS she is okay to d/c home today from urology standpoint. She is aware if pain would return to return to ER. We will follow up with her in office next week to schedule stone surgery if this has not passed. She also has a nonobstructing larger left stone that can be dealt with on an outpt basis. Thanks for the consult. Will continue to follow along with primary care. Agree with yelena Rodriguez
[2017-01-18] MEDS: NSS + 20MEQ KCL 1000ML 1,000 ML IV SCH (10:05)
[2017-01-18] MEDS ORDERED: FLM4 PO (10:47)
[2017-01-18] MEDS ORDERED: CIPR-255 PO (10:47)
--- NOTE | 2017-01-18 10:49 | Discharge Instructions ---
Discharge Instructions Date of Service Jan 18, 2017. Admission Reason for Admission: Hydronephrosis, Left Ureteral Calculus Discharge Discharge Diagnosis / Problem: ureteral calculus, hydornephrosis Discharge Goals Goal(s): Decrease discomfort, Improve function, Increase independence, Improve disease control, Learn about illness, Diagnostic testing, Prevent Disease Progression Activity Recommendations Activity Limitations: resume your previous activity Exercise/Sports Limitations: none Driving or Machine Use: no limitations . Instructions / Follow-Up Instructions / Follow-Up Patient to be discharged home Please continue to strain urine Script on discharge for cipro 500 mg by mouth twice a day for 7 days Script also sent for flomax 0.4 mg tablet once a day Will need follow up appointment with urology in 1 week If pain persists or worsening fever please report to ER Current Hospital Diet Patient's current hospital diet: Regular Diet Discharge Diet Recommended Diet: Regular Diet Pending Studies Studies pending at discharge: no Medical Emergencies . Who to Call and When: Medical Emergencies: If at any time you feel your situation is an emergency, please call 911 immediately. . Non-Emergent Contact Non-Emergency issues call your: Primary Care Provider Call Non-Emergent contact if: you have a fever, your pain is worsening . . "Provider Documentation" section prepared by Joey Perez. . VTE Core Measure Inpt VTE Proph given/why not?: SCD's
[2017-01-18] MEDS: FAMOTIDINE IV INJ 20 MG in DEXTROSE 5% 100ML 100 ML IV SCH (10:59)
[2017-01-18] MEDS ORDERED: CIPROFLOXACIN 500 MG TAB PO ONE (12:00)
[2017-01-18] MEDS ORDERED: HYDR-5688 PO (12:13)
[2017-01-18 12:23] VITALS: BP 116/70; PULSE 62; TEMP 36.7; O2SAT 98
--- NOTE | 2017-01-18 12:57 | Progress Note ---
Subjective Date of Service: Jan 18, 2017. Subjective Pt evaluation today including: conversation w/ patient, physical exam, chart review, review of studies pt w/o pain discussed options of 1 trial of passage 2 ESWL 3 R ureteroscopy Pt inclined to go home and f/u next week for possible eswl or ureterocopy scheduling . She knows fever requires an urgent response Problem List Medical Problems: (1) Kidney stone Status: Acute Objective Vital Signs Date Time Temp Pulse Resp B/P (MAP) Pulse Ox O2 Delivery O2 Flow Rate FiO2 01/18/17 12:23 36.7 62 16 98 Room Air 01/18/17 07:50 Room Air 01/18/17 07:38 36.7 62 16 116/70 (85) 98 Room Air 01/17/17 23:35 36.9 70 16 103/68 (80) 96 Room Air 01/17/17 21:30 Room Air 01/17/17 21:30 36.7 66 18 126/88 97 Room Air 01/17/17 21:10 36.7 60 20 106/66 99 01/17/17 20:46 60 20 106/66 99 Room Air 01/17/17 18:11 36.7 64 16 153/94 95 Room Air Laboratory Results Last 24 Hours Test 01/17/17 18:50 01/17/17 19:35 01/18/17 06:57 White Blood Count 10.28 K/uL 8.26 K/uL Red Blood Count 4.77 M/uL 4.20 M/uL Hemoglobin 14.2 g/dL 12.4 g/dL Hematocrit 40.9 % 36.8 % Mean Corpuscular Volume 85.7 fL 87.6 fL Mean Corpuscular Hemoglobin 29.8 pg 29.5 pg Mean Corpuscular Hemoglobin Concent 34.7 g/dl 33.7 g/dl Platelet Count 244 K/uL 194 K/uL Mean Platelet Volume 9.7 fL 8.9 fL Neutrophils (%) (Auto) 50.7 % 60.7 % Lymphocytes (%) (Auto) 39.6 % 31.1 % Monocytes (%) (Auto) 4.5 % 6.2 % Eosinophils (%) (Auto) 4.7 % 1.5 % Basophils (%) (Auto) 0.4 % 0.4 % Neutrophils # (Auto) 5.22 K/uL 5.02 K/uL Lymphocytes # (Auto) 4.07 K/uL 2.57 K/uL Monocytes # (Auto) 0.46 K/uL 0.51 K/uL Eosinophils # (Auto) 0.48 K/uL 0.12 K/uL Basophils # (Auto) 0.04 K/uL 0.03 K/uL RDW Standard Deviation 39.4 fL 41.1 fL RDW Coefficient of Variation 12.6 % 12.8 % Immature Granulocyte % (Auto) 0.1 % 0.1 % Immature Granulocyte # (Auto) 0.01 K/uL 0.01 K/uL Sodium Level 142 mmol/L 142 mmol/L Potassium Level 3.6 mmol/L 4.1 mmol/L Chloride Level 107 mmol/L 111 mmol/L Carbon Dioxide Level 27 mmol/L 29 mmol/L Anion Gap 8.0 mmol/L 2.0 mmol/L Blood Urea Nitrogen 13 mg/dl 11 mg/dl Creatinine 1.20 mg/dl 0.88 mg/dl Est Creatinine Clear Calc Drug Dose 86.5 ml/min 117.9 ml/min Estimated GFR () 68.8 100.1 Estimated GFR (Non- 59.3 86.3 BUN/Creatinine Ratio 10.6 12.2 Random Glucose 103 mg/dl 89 mg/dl Calcium Level 8.7 mg/dl 7.9 mg/dl Total Bilirubin 0.2 mg/dl Aspartate Amino Transf (AST/SGOT) 21 U/L Alanine Aminotransferase (ALT/SGPT) 27 U/L Alkaline Phosphatase 84 U/L Total Protein 7.4 gm/dl Albumin 3.4 gm/dl Globulin 4.0 gm/dl Albumin/Globulin Ratio 0.9 Urine Color YELLOW Urine Appearance CLOUDY Urine pH >= 9.0 Urine Specific [place] 1.027 Urine Protein NEG Urine Glucose (UA) NEG Urine Ketones NEG Urine Occult Blood TRACE Urine Nitrite NEG Urine Bilirubin NEG Urine Urobilinogen NEG Urine Leukocyte Esterase SMALL Urine WBC (Auto) 10-30 /hpf Urine RBC (Auto) 5-10 /hpf Urine Hyaline Casts (Auto) 10-30 /lpf Urine Epithelial Cells (Auto) >30 /lpf Urine Bacteria (Auto) 2+ Urine Renal Epithelial Cells /lpf Magnesium Level 1.8 mg/dl Assessment and Plan kub OK for d/c after this Pt wants result prior to discharge
--- NOTE | 2017-01-18 13:39 | DIAGNOSTIC IMAGING REPORT ---
KUB CLINICAL HISTORY: Ureterolithiasis. FINDINGS: 2 AP supine abdominal radiographs are correlated with abdominal CT dated 01/17/2017. There is a nonobstructed abdominal bowel gas pattern noting moderate colonic fecal retention. There is unchanged appearance of a 6 mm distal left ureteral calculus when correlated with yesterday's abdominal CT scan. Additional small nonobstructive calculi are seen projecting over both kidneys. The bony structures appear intact. IMPRESSION: 1. Unchanged appearance of a 6 mm distal left ureteral calculus when correlated with yesterday's CT scan. 2. Additional small bilateral nonobstructing renal calculi are noted. 3. Moderate colonic fecal retention. Electronically signed by: Roland Powell M.D. 01/18/2017 1:38 PM Dictated Date/Time: 01/18/2017 1:36 PM
--- NOTE | 2017-01-18 15:44 | Discharge Summary ---
Discharge Summary Date of Service Jan 18, 2017. Discharge Summary Admission Date: Jan 17, 2017 at 20:48 Discharge Date: Jan 18, 2017 Discharge Disposition: Home Principal Diagnosis: Kidney stone Immunizations: Have You Had Influenza Vaccine: Unknown History of Tetanus Vaccine?: UTD History of Pneumococcal: No History of Hepatitis B Vaccine: No Consultations: Urology Medication Reconciliation New Medications: Ciprofloxacin Hcl (Cipro) 500 Mg Tab 500 MG PO BID for 7 Days, #14 TAB Hydrocodone/Acetaminophen 5MG/325MG ([place] 5MG/325MG) Tab 1 TABLET PO Q4H PRN for Pain, #30 TAB Tamsulosin HCl (Tamsulosin HCl) 0.4 Mg Cap 0.4 MG PO QAM, #30 CAP Continued Medications: Control Pills ( Control Pills) Tab 1 TAB PO DAILY, TAB Discharge Exam Review of Systems: Constitutional: No fever, No chills, No sweats, No weakness Respiratory: No cough, No sputum, No wheezing, No shortness of breath, No dyspnea at rest Cardiovascular: No chest pain, No orthopnea, No PND, No edema Abdomen: No pain, No nausea, No vomiting, No diarrhea Musculoskeletal: + muscle pain, No joint pain, No swelling, No calf pain Genitourinary - Female: No dysuria, No urinary frequency, No urinary urgency , No urinary incontinence, No urinary retention Neurologic: No memory loss, No paralysis, No weakness, No numbness/tingling Psychiatric: No depression symptoms, No anhedonism, No anxiety, No insomnia Endocrine: No fatigue, No excessive thirst, No excessive urination Integumentary: No rash, No itch Physical Exam: General Appearance: WD/WN, no apparent distress Eyes: normal inspection, PERRL, EOMI, sclerae normal Neck: supple, no adenopathy, thyroid normal, no JVD Respiratory/Chest: chest non-tender, lungs clear, normal breath sounds, no respiratory distress Cardiovascular: regular rate, rhythm, no edema, no gallop, no JVD Abdomen / GI: normal bowel sounds, non tender, soft, no organomegaly Extremities: normal inspection, no calf tenderness, normal capillary refill , no pedal edema Neurologic/Psychiatric: no motor/sensory deficits, alert, normal mood/affect , oriented x 3 Skin: normal color, warm/dry, no rash Lymphatic: no adenopathy Hospital Course Left 6 mm ureterovesical junction calculus with mild left hydronephrosis-- patient admitted to medical surgical floor. Place on ceftriaxone 1 g IV daily initially Follow urine culture and sensitivity reports, pending at time of discharge Urology consulted, no urgent intervention, trial of passage, IVF, f/u on discharge Since pt tried keflex and bactrim and states itching with rocephin, decided to discharge on cipro 500 mg PO BID in addition to norco 5/325 q 4hr PRN pain and flomax 0.4 mg PO daily DC home Indeterminate Liver lesion-liver US, likely hemagioma, LFTs normal, no indication for further f/u Total Time Spent: Greater than 30 minutes This includes examination of the patient, discharge planning, medication reconciliation, and communication with other providers. Discharge Instructions Please refer to the electronic Patient Visit Report (Discharge Instructions) for additional information. Additional Copies To Gretel Garcia C.R.N.P.
[2017-01-18] MEDS ORDERED: CIPROFLOXACIN 500 MG TAB PO SCH (21:00)
[2017-01-19] MEDS ORDERED: TAMSULOSIN HCL 0.4 MG CAP PO SCH (09:00)
[2017-01-29] MEDS ORDERED: IBUP-1050 PO (14:48)
[2017-02-21] MEDS ORDERED: PHEN-775 PO (08:46)
[2017-02-21] MEDS ORDERED: OXYC7.5T65 PO (08:46)
[2017-02-21] MEDS ORDERED: CEPH500C2 PO (08:46)
== END 2017-01-18 14:25 | disposition home or self-care (01) | DRG 694 ==
LOC: C.EDB 18:09 → C.3E 20:48 → ENRESERV 20:58
PROVIDERS: ADMIT Hospitalist; ATTEND Hospitalist
DX: N13.2 Hydronephrosis with renal and ureteral calculous obstruction (principal)

== ENCOUNTER → 2017-02-11 | Outpatient (CLI) | payer BC ==
[~2017-02-11] MED LIST changes: -ACET-749 PO; +BCPILLS PO; +CEPH500C2 PO; +FLM4 PO; +IBUP-1050 PO; +OXYC7.5T65 PO; +PHEN-775 PO; -PRENTAB26 PO
--- NOTE | 2017-02-11 09:26 | DIAGNOSTIC IMAGING REPORT ---
KUB CLINICAL HISTORY: Left ureteral calculi. COMPARISON STUDY: CT of the abdomen and pelvis January 17, 2017 and KUB January 18, 2017. FINDINGS: A 5 mm calculus within the upper pole of the left kidney is unchanged. A 6 mm left pelvic calcification, just the left of midline, is noted. This likely corresponds to the ureteral calculus shown on prior exam. Bowel gas pattern is normal. The small right renal calculus is again noted. IMPRESSION: 1. 6 mm left pelvic calcification likely reflects the left ureteral calculus located at the ureterovesical junction. Mild distal migration since prior exam. 2. No change in bilateral nephrolithiasis. Electronically signed by: Antwan Keene M.D. 02/11/2017 9:25 AM Dictated Date/Time: 02/11/2017 9:22 AM
== END | disposition home or self-care (01) ==
LOC: C.RAD 08:53
PROVIDERS: ATTEND Urology
DX: N20.1 Calculus of ureter (principal)

== ENCOUNTER → 2017-02-12 | Outpatient (CLI) | payer BC ==
[2017-02-12 14:47] LABS: BASO % 0.5 %; BASO ABS # 0.04 K/uL (0-0.2); COMPLETE YES; EOS % 5.6 %; HEMATOCRIT 41.1 % (37-47); IG% 0.1 %; LYMPH % 33.8 %; MEAN CELL VOLUME 86.5 fL (80-100); MEAN CORPUSCULAR HEMOGLOBIN 29.7 pg (25-34); MEAN CORPUSCULAR HGB CONC 34.3 g/dl (32-36); MEAN PLATELET VOLUME 10.8 fL (7.4-10.4); MONO % 5.8 %; NEUT % 54.2 %; PLATELET COUNT 261 K/uL (130-400); RED BLOOD COUNT 4.75 M/uL (4.2-5.4)
[2017-02-12 15:16] LABS: BLOOD UREA NITROGEN 12 mg/dl (7-18); BUN/CREATININE RATIO 16.3 (10-20); CARBON DIOXIDE 27 mmol/L (21-32); CHLORIDE 108 mmol/L (98-107); CREATININE 0.75 mg/dl (0.60-1.20); GLUCOSE 75 mg/dl (70-99); POTASSIUM 3.9 mmol/L (3.5-5.1); SODIUM 141 mmol/L (136-145)
== END | disposition home or self-care (01) ==
LOC: C.CPL 12:53
PROVIDERS: ATTEND Urology
DX: N20.1 Calculus of ureter (principal)

== ENCOUNTER → 2017-02-14 | Outpatient (CLI) | payer BC ==
--- NOTE | 2017-02-14 18:00 | DIAGNOSTIC IMAGING REPORT ---
CHEST 2 VIEWS ROUTINE CLINICAL HISTORY: 31 years-old Female presenting with N20.1. TECHNIQUE: PA and lateral views of the chest were obtained. COMPARISON: None. FINDINGS: Cardiomediastinal silhouette normal. Lungs and pleural spaces clear. Osseous structures normal. Upper abdomen normal. IMPRESSION: 1. No acute cardiopulmonary disease. Electronically signed by: Monico Rivas M.D. 02/14/2017 5:59 PM Dictated Date/Time: 02/14/2017 5:58 PM
== END | disposition home or self-care (01) ==
LOC: C.RAD 17:47
PROVIDERS: ATTEND Urology
DX: N20.1 Calculus of ureter (principal)

== ENCOUNTER → 2017-02-21 | Day surgery (SDC) | payer BC ==
[2017-01-29 14:53] VITALS: BMI 36.0
[~2017-02-21] VITALS: Ht 172.7 cm; Wt 107.7 kg
[~2017-02-21] MED LIST changes: +ATROPINE SULFATE 0.1 MG/ML 5ML SYR IV PRN; +CEFAZOLIN 3000 MG/65 ML D5W IV SCH; +CONRAY 30% 150ML BOTTLE ONE; +DEXAMETHASONE SOD INJ 4 MG/ML VIAL ONE; +EpHEDrine SULFATE INJ 50 MG/ML AMP IV PRN; +FENTANYL CITRATE INJ 50 MCG/1 ML 2 ML VIAL IV PRN; +FENTANYL CITRATE INJ 50 MCG/1 ML 2 ML VIAL ONE; +FLUMAZENIL 0.1 MG/1 ML 10 ML VIAL IV PRN; +KETOROLAC TROMETHAMINE 30 MG/ML VIAL ONE; +LABETALOL HCL IV 5 MG/ML 20ML IV PRN; +LACTATED RINGER'S 1000ML 1,000 ML IV SCH; +LIDOCAINE HCL 2% 2 ML VIAL (20MG/ML) ONE; +MIDAZOLAM HCL 1 MG/ML 2ML VIAL ONE; +NALOXONE HCL 0.4 MG/1 ML VIAL/CARP IV PRN; +ONDANSETRON INJ 2 MG/ML 2 ML VIAL IV PRN; +ONDANSETRON INJ 2 MG/ML 2 ML VIAL ONE; +OXYCODONE/ACETAMINOPHEN 10/325MG TAB PO PRN; +PROMETHAZINE HCL INJ 12.5 MG in SODIUM CHLORIDE 0.9% 50ML 50 ML IV PRN; +PROPOFOL IV EMULSION 10 MG/ML 20 ML VIAL IV ONE; +SCOPOLAMINE 1.5 MG TDSY TD ONE
[2017-02-21 08:11] VITALS: BP 113/70; PULSE 77; TEMP 36.6; O2SAT 100; Ht 172.7 cm; Wt 107.7 kg
--- NOTE | 2017-02-21 08:45 | Discharge Instructions ---
Discharge Instructions Date of Service Feb 21, 2017. Admission Reason for Admission: STONE Discharge Discharge Diagnosis / Problem: Stone Discharge Goals Goal(s): Decrease discomfort, Improve function Activity Recommendations Activity Limitations: resume your previous activity . Instructions / Follow-Up Instructions / Follow-Up May have blood in urine or pelvic discomfort. Call with any fevers or issues. Plan to follow up for discussion of treatment and management of stones. String left attached and patient comfortable to remove on own in 1 week. Will call if any issues or concerns. Long history of stone disease. Will need outpatient workup for stone risk. Current Hospital Diet Hospital Diet(s): Regular Diet Discharge Diet Recommended Diet: Regular Diet Procedures Procedures Performed: Cystoscopy URS Pending Studies Studies pending at discharge: no Medical Emergencies . Who to Call and When: Medical Emergencies: If at any time you feel your situation is an emergency, please call 911 immediately. . Non-Emergent Contact Non-Emergency issues call your: Primary Care Provider, Urologist Call Non-Emergent contact if: you have a fever, temperature is above 100.5, temperature is above 101, your pain is not controlled, your pain is worsening . . "Provider Documentation" section prepared by Zay Rizo,. . VTE Core Measure Inpt VTE Proph given/why not?: Musa Lino, SCD's
--- NOTE | 2017-02-21 08:50 | [facility] Operative Report ---
Operative Report Operative Date Feb 21, 2017. Pre-Operative Diagnosis Stone Post-Operative Diagnosis Same Procedure(s) Performed Cystoscopy Left URS, Retrograde Pyelogram, Stent Surgeon Darrius [employer] Supervisor Surgeon(s) None Estimated Blood Loss 10 Findings Stone on left with left renal stones. Specimens None Drains 6x24 Left stent with string Anesthesia General Complication(s) None Disposition Recovery Room / PACU Indications Obstructing stone on left with bilateral renal stones. Risks and benefits discussed at length. Description of Procedure Patient was consented and brought back to the operating room. Patient was placed under anesthesia in the supine position. Patient was prepped and draped in the regular sterile fashion. A time out was completed. A 30degree Cystoscope was placed into the bladder and the entire bladder was examined. The UO's were identified. The left was cannulized with a catheter and a retrograde pyelogram was completed. A wire was then placed. With the wire in place, a ureteroscope was placed and taken to the point of the proximal ureter. No ureteral stone was identified. The UO on the left did have a slightly irritated appearance that could have been due to recently passed stone. At this point, a flexible ureteroscope was placed and taken to the renal pelvis. A laser was selected and the stone was pulverized to dust and small fragments. With the stone completely treated, the scope was removed while maintaining a wire. The remainder of the ureter was examined during removal. No masses or lesions seen. A 6 x [24] Double J stent was placed with string attached. It was confirmed with fluoroscopy. With the stent in place, the bladder was emptied. The scope was removed. The patient was cleaned, aroused from anesthesia, and transferred to the pacu in stable condition having tolerated the procedure well with no complications. I was present and participated in all aspects of the procedure. The patient will be monitored in the PACU until transferred. I attest to the content of the Intraoperative Record and any orders documented therein. Any exceptions are noted below.
--- NOTE | 2017-02-21 10:14 | Anesthesiology Progress Note ---
Anesthesia Post Op Note Date & Time Feb 21, 2017 at 10:14 Vital Signs Pain Intensity: 2 Vital Signs Past 12 Hours Date Time Temp Pulse Resp B/P (MAP) Pulse Ox O2 Delivery O2 Flow Rate FiO2 02/21/17 10:00 64 16 124/74 98 Oxymask 10 02/21/17 09:50 64 16 111/75 99 Oxymask 10 02/21/17 09:41 36.7 16 127/63 99 Oxymask 10 02/21/17 08:11 36.6 77 20 113/70 (84) 100 Room Air Notes Mental Status: alert / awake / arousable, participated in evaluation Pt Amnestic to Procedure: Yes Nausea / Vomiting: adequately controlled Pain: adequately controlled Airway Patency, RR, SpO2: stable & adequate BP & HR: stable & adequate Hydration State: stable & adequate Anesthetic Complications: no major complications apparent
--- NOTE | 2017-02-21 10:23 | DIAGNOSTIC IMAGING REPORT ---
Radiology RETROGRADE INCLUDES KUB CLINICAL HISTORY: 31 years-old Female presenting with LT RETROGRADE/LITHO/STENT PLACEMENT. TECHNIQUE: 7 fluoroscopic spot image(s) obtained as part of an intraoperative procedure. COMPARISON: 02/11/2017. FINDINGS/IMPRESSION: A guidewire was introduced into the left renal collecting system as well as a catheter. The left renal collecting system was subsequently opacified with contrast. A left ureteral stent was placed. A round radiopaque region in the lower pole of the left kidney is already apparent after initial contrast injection and is indeterminate. Please see surgical report for further details. Fluoroscopy dosage (mGy): Not available. Fluoroscopy time: 1 minute 9 seconds. Number of fluoroscopic spot images: 7. Electronically signed by: Monico Rivas M.D. 02/21/2017 10:22 AM Dictated Date/Time: 02/21/2017 10:20 AM
[2017-02-21 10:30] VITALS: PULSE 18; TEMP 36.6
[2017-02-21 10:41] VITALS: BP 107/69; PULSE 18; TEMP 36.6; O2SAT 95
[2017-02-21 11:01] VITALS: BP 99/59; PULSE 18; O2SAT 95
[2017-02-21 11:38] VITALS: BP 120/72; PULSE 16; TEMP 36.4; O2SAT 96
== END | disposition home or self-care (01) ==
LOC: C.ACU 07:46
PROVIDERS: ATTEND Urology
DX: N20.1 Calculus of ureter (principal); Z80.3 Family history of malignant neoplasm of breast; Z82.49 Family history of ischemic heart disease and other diseases of the circulatory system; Z83.3 Family history of diabetes mellitus; Z84.1 Family history of disorders of kidney and ureter

== ENCOUNTER → 2017-09-14 | Outpatient (CLI) | payer OTHER ==
[~2017-09-14] MED LIST changes: -ATROPINE SULFATE 0.1 MG/ML 5ML SYR IV PRN; -CEFAZOLIN 3000 MG/65 ML D5W IV SCH; -CEPH500C2 PO; -CONRAY 30% 150ML BOTTLE ONE; -DEXAMETHASONE SOD INJ 4 MG/ML VIAL ONE; -EpHEDrine SULFATE INJ 50 MG/ML AMP IV PRN; -FENTANYL CITRATE INJ 50 MCG/1 ML 2 ML VIAL IV PRN; -FENTANYL CITRATE INJ 50 MCG/1 ML 2 ML VIAL ONE; -FLUMAZENIL 0.1 MG/1 ML 10 ML VIAL IV PRN; -KETOROLAC TROMETHAMINE 30 MG/ML VIAL ONE; -LABETALOL HCL IV 5 MG/ML 20ML IV PRN; -LACTATED RINGER'S 1000ML 1,000 ML IV SCH; -LIDOCAINE HCL 2% 2 ML VIAL (20MG/ML) ONE; -MIDAZOLAM HCL 1 MG/ML 2ML VIAL ONE; -NALOXONE HCL 0.4 MG/1 ML VIAL/CARP IV PRN; -ONDANSETRON INJ 2 MG/ML 2 ML VIAL IV PRN; -ONDANSETRON INJ 2 MG/ML 2 ML VIAL ONE; -OXYC7.5T65 PO; -OXYCODONE/ACETAMINOPHEN 10/325MG TAB PO PRN; -PHEN-775 PO; -PROMETHAZINE HCL INJ 12.5 MG in SODIUM CHLORIDE 0.9% 50ML 50 ML IV PRN; -PROPOFOL IV EMULSION 10 MG/ML 20 ML VIAL IV ONE; -SCOPOLAMINE 1.5 MG TDSY TD ONE
[2017-09-14 09:49] LABS: HEMOGLOBIN 14.8 g/dL (12.0-16.0); MEAN CELL VOLUME 86.2 fL (80-100); MEAN CORPUSCULAR HEMOGLOBIN 29.7 pg (25-34); MEAN CORPUSCULAR HGB CONC 34.4 g/dl (32-36); MEAN PLATELET VOLUME 9.7 fL (7.4-10.4); PLATELET COUNT 222 K/uL (130-400); RED CELL DISTRIBUTION WIDTH CV 12.7 % (11.5-14.5); RED CELL DISTRIBUTION WIDTH SD 40.1 fL (36.4-46.3); WHITE BLOOD COUNT 5.82 K/uL (4.8-10.8)
[2017-09-14 10:26] LABS: ALBUMIN 3.4 gm/dl (3.4-5.0); ALT/SGPT 21 U/L (12-78); AST/SGOT 14 U/L (15-37); BLOOD UREA NITROGEN 8 mg/dl (7-18); CALCIUM 9.2 mg/dl (8.5-10.1); CARBON DIOXIDE 29 mmol/L (21-32); CREATININE 0.78 mg/dl (0.60-1.20); GLUCOSE 85 mg/dl (70-99); LIPASE 82 U/L (73-393); POTASSIUM 3.8 mmol/L (3.5-5.1); SODIUM 138 mmol/L (136-145)
[2017-09-14 10:29] LABS: ALKALINE PHOSPHATASE 74 U/L (45-117); TOTAL PROTEIN 7.9 gm/dl (6.4-8.2)
== END | disposition home or self-care (01) ==
LOC: C.LAB 09:07
PROVIDERS: ATTEND Internal Medicine
DX: R10.9 Unspecified abdominal pain (principal)

== ENCOUNTER → 2017-09-25 | Outpatient (CLI) | payer OTHER ==
--- NOTE | 2017-09-25 07:46 | DIAGNOSTIC IMAGING REPORT ---
(LIVER) ABDOMEN LIMITED CLINICAL HISTORY: R93.8 Abnormal finding on [id number] TECHNIQUE: Ultrasound COMPARISON STUDY: Ultrasound 01/18/2017 FINDINGS: Liver continues to show a 2 x 1.2 cm echogenic focus near the interlobar fissure. This is unchanged in the prior study. Remainder the liver is uniform. Gallbladder is unremarkable. Right kidney is negative for hydronephrosis. IMPRESSION: 1. Unchanging small echogenic focus near the tr hepatis. 2. This is consistent with a small benign hemangioma versus interlobar fat and is unchanged from the prior exam. 3. Remainder the study is negative. The above report was generated using voice recognition software. It may contain grammatical, syntax or spelling errors. Electronically signed by: Jules Montalvo M.D. 09/25/2017 7:44 AM Dictated Date/Time: 09/25/2017 7:38 AM
== END | disposition home or self-care (01) ==
LOC: C.ULTR 07:03
PROVIDERS: ATTEND Nurse Practitioner
DX: R93.8 Abnormal findings on diagnostic imaging of other specified body structures (principal)